=== PATIENT | male | born 1985 ===

== ENCOUNTER 2023-07-23 10:47 | Outpatient (AMB) | payer MEDICAID, SELFPAY ==
--- NOTE | 2023-07-23 10:51 | MHC.OFFVIS ---
Intake Vital Signs 07/23/23 10:55 07/23/23 11:02 Height 5 ft 1 in 5 ft 1 in Weight 175 lb 7.807 oz BMI 33.2 BP 127/82 Blood Pressure Location Lt brachial Position Sitting Pulse 85 Intake Visit Reasons: burning sensation of rectum Intake Note: Patient presents to in office visit today as a new patient for burning sensation of rectum CC: Patient reports stools with mucous and c/o burning sensation of rectum for about one year and a half. Pt states he had colonoscopy and EGD done about 4 years ago at a [facility] facility in [place]. Clinical Psychologist Required: No Accompanied by: Self / Same As Patient Allergies Penicillins Allergy (Unknown, Verified 07/23/23 10:59) Unknown HPI burning sensation of rectum HPI Details 38-year-old male here for initial evaluation of ?rectal burning. ? he is referred by Alison Tipton of [facility]. PMX Obesity Rectal wall positive for gonorrhea, history of being treated for chlamydia and syphilis Lumbar degenerative disc disease with disc herniation L5-S1 ? Herpes simplex Depression/anxiety/PTSD ? Body dysmorphic disorder Lumber DJD with herniated disc L5 Chronic low back pain * SURGICAL HISTORY COlonoscopy/EGD - 3 years ago at [facility], normal * ALLERGIES Penicillin * [facility] LABS: None in our system TODAY'S VISIT Last year he was afflicted with 3 STD's G/C and syphillis. Since then he has felt a heat in the rectum with mucus in the stools. This is concerning for him. STD testing now is negative s/p tx. He is a sexually active rendon male who engages in rectal sex. He does tap water enemas daily. We discussed possible problems/complications that tap water enemas could bring specific to microbe that could be living in tap water that could be irritating to the rectum as well as the difference and osmolality/sodium levels that do not match the body fluids. I tried recommending using distilled water and I even offered to make a recipe for him to make a salt water solution but he feels that he needs the ?force? that comes out of the faucet to feel clean during these enemas. The heat is getting better, but the mucus persists. It seems to be clear. There is no change in the consistency, timing, or color of the stools. It is not a great about of mucus, but it is there. We discussed the possibility that the localized immune system is simply over activated because of the STDs. This was the 1st time he has ever had sexually transmitted diseases. I explained that inflammation and activation of the complement system can persist for very long time in different individuals. This is 1 of the proposed mechanisms of long COVID for example and we do not understand why 1 person's immune system will be excited for a long time and others may not. It is also possible that the tap water enemas her contributing, again, cut the body is over reacting to the grindstone microbes in the water. He wants to know we would consider treating with antibiotic or an anti-inflammatory. I told him I need to do some research to see if there is any other cases of rectal STDs causing lasting problems before making a decision about reasonable treatments. He has testing that is performed every 3 months and he has been clean of any STDs over the past 3 months at least. He also had a colonoscopy and upper endoscopy that was normal fairly recently at [facility]. Rectal exam only shows a small column of possible mild hemorrhoidal tissue at about 02:00 o'clock. There is no signs of strictures bleeding or any other abnormalities. For now I am not going to do anything until I can do some research and we agree to get back together in about 6 weeks. Also committed to trying to use his tap water enemas less often to give the rectum some time to recover. [facility] Medical History (Updated 07/23/23 @ 17:05 by KARLY Armijo) Herpes simplex infection of rectum History of gonorrhea History of syphilis Surgical History History of esophagogastroduodenoscopy (EGD) H/O colonoscopy Social History Alcohol intake: never Patient Tobacco Use Status: Never used Tobacco Review of Systems Const Denies fatigue, Denies fever(s), Denies night sweats, Denies poor appetite and Denies weight loss ENT Reports Normal hearing present, Denies dental pain, Denies dysphagia, Denies hearing loss, Denies mouth pain, Denies odynophagia, Denies throat swelling, Denies tongue swelling and Reports other (Dentition adequate) Card Reports no additional complaints Resp Reports no additional complaints GI Details: rectal burning and mucus Denies abdominal pain, Denies melena, Denies bloating, Denies hematochezia, Denies constipation, Denies GI cramping, Denies dysphagia, Denies excessive flatus, Denies early satiety, Denies heartburn, Denies diarrhea, Denies nausea, Denies odynophagia, Denies vomiting and Denies hematemesis Skin/Breast Denies pruritus, Denies lesions, Denies rash and Denies jaundice Neuro Reports Normal hearing present and Denies Abnormal speech present Endo Denies fatigue Aller/Immun Denies throat swelling and Denies tongue swelling Physical Exam Vital Signs: Last Vital Signs Pulse 85 07/23/23 10:55 BP 127/82 07/23/23 10:55 BMI result Body Mass Index 33.2 Const General: cooperative, no acute distress, well developed and well groomed Nutritional Appearance: well nourished and obese centrally obese Orientation/consciousness: oriented to person, oriented to place and oriented to time Limitations: No language barrier HEENT Head: Yes normocephalic and Yes atraumatic Eyes General: appearance normal, both eyes and all related structures Pupils: Equal, round and reactive pupils present Neck Neck: Yes normal visual inspection and Yes no lymphadenopathy Thyroid: Thyroid normal Resp Effort & Inspection: normal respiratory effort and able to speak in complete sentences Auscultation: clear to auscultation bilaterally Cardio Rate: regular rate Rhythm: regular rhythm Heart sounds: Normal, physiologic split S2 sound present Peripheral pulses: radial pulses present and posterior tibial pulses present GI Inspection: No distended and No Abdominal panniculus present Palpation (GI): Soft to palpation, nontender, no guarding, not rigid and No hepatosplenomegaly present Percussion: Yes normal to percussion Auscultation: normal bowel sounds Rectal Exam - Male: Yes normal sphincter tone, No Abnormal stool present, No Fistula present (GI), No Excoriation present (GI), No tenderness and Yes other (SOME COLUMNS of swollen veins at 02:00 o'clock) Skin General skin exam: no rashes or lesions noted, turgor normal, skin not dry, no jaundice, No spider nevi and no striae Rashes: no rashes Nails: normal Neuro General: oriented to person, oriented to place and oriented to time Cranial nerves: Yes Equal, round and reactive pupils present and Yes Normal hearing present Speech: No Abnormal speech present Extrem General: Yes normal to inspection, No clubbing, No cyanosis and No edema Psych Appearance: grossly normal and well kempt Mental Status: mental status grossly normal Speech and movement: Normal speech and movement present Affect: normal affect Attitude: cooperative Thought process: Normal thought process present and not confabulating Thought content: Normal thought content present Insight: Limited insight present (Psych) Judgement: Limited judgement present (Psych) Assessment & Plan Assessment & Plan (1) Rectal burning: Code(s): R20.8 - Other disturbances of skin sensation (2) History of chlamydia: Code(s): Z86.19 - Personal history of other infectious and parasitic diseases Plan Last year he was afflicted with 3 STD's G/C and syphillis. Since then he has felt a heat in the rectum with mucus in the stools. This is concerning for him. STD testing now is negative s/p tx. He is a sexually active rendon male who engages in rectal sex. He does tap water enemas daily. We discussed possible problems/complications that tap water enemas could bring specific to microbe that could be living in tap water that could be irritating to the rectum as well as the difference and osmolality/sodium levels that do not match the body fluids. I tried recommending using distilled water and I even offered to make a recipe for him to make a salt water solution but he feels that he needs the ?force? that comes out of the faucet to feel clean during these enemas. The heat is getting better, but the mucus persists. It seems to be clear. There is no change in the consistency, timing, or color of the stools. It is not a great about of mucus, but it is there. We discussed the possibility that the localized immune system is simply over activated because of the STDs. This was the 1st time he has ever had sexually transmitted diseases. I explained that inflammation and activation of the complement system can persist for very long time in different individuals. This is 1 of the proposed mechanisms of long COVID for example and we do not understand why 1 person's immune system will be excited for a long time and others may not. It is also possible that the tap water enemas her contributing, again, cut the body is over reacting to the grindstone microbes in the water. He wants to know we would consider treating with antibiotic or an anti-inflammatory. I told him I need to do some research to see if there is any other cases of rectal STDs causing lasting problems before making a decision about reasonable treatments. He has testing that is performed every 3 months and he has been clean of any STDs over the past 3 months at least. He also had a colonoscopy and upper endoscopy that was normal fairly recently at [facility]. Rectal exam only shows a small column of possible mild hemorrhoidal tissue at about 02:00 o'clock. There is no signs of strictures bleeding or any other abnormalities. For now I am not going to do anything until I can do some research and we agree to get back together in about 6 weeks. Also committed to trying to use his tap water enemas less often to give the rectum some time to recover. Coding Level of Care Code New Pt Level 3 (77541) Diagnoses Rectal burning R20.8 History of chlamydia Z86.19
[2023-07-23 10:55] VITALS: BP 127/82; PULSE 85; BMI 33.2
== END 2023-07-23 11:46 | disposition home or self-care (01) ==
PROVIDERS: PCP Family Medicine; Visit Provider Nurse Practitioner
DX: R20.8 Other disturbances of skin sensation (principal); Z86.19 Personal history of other infectious and parasitic diseases
CPT/HCPCS: 99203

== ENCOUNTER → 2023-07-23 10:47 | Outpatient (BNVA) | payer MEDICAID, SELFPAY | PROVIDERS: PCP Family Medicine; Visit Provider Nurse Practitioner | DX: R20.8 Other disturbances of skin sensation (principal); Z86.19 Personal history of other infectious and parasitic diseases | CPT/HCPCS: 99212 ==

== ENCOUNTER 2023-09-03 11:02 | Outpatient (AMB) | payer MEDICAID, SELFPAY ==
--- NOTE | 2023-09-03 11:16 | A.OFFVIS_ITS ---
Intake Vital Signs 09/03/23 11:18 Height 5 ft 1 in Weight 177 lb 4.026 oz BMI 33.5 BP 123/79 Blood Pressure Location Rt brachial Position Sitting Pulse 82 Intake Visit Reasons: 6 week follow up Intake Note: Patient returns in follow up of burning sensation from rectum. CC: Patient continue to see mucous in stools and having a burning sensation of rectum. No new concerns today. Plug Shaper Hand Required: No Accompanied by: Self / Same As Patient Allergies Penicillins Allergy (Unknown, Verified 09/03/23 11:24) Unknown HPI 6 week follow up HPI Details Assessment & Plan (1) Rectal burning: Code(s): R20.8 - Other disturbances of skin sensation (2) History of chlamydia: Code(s): Z86.19 - Personal history of other infectious and parasitic diseases Plan Last year he was afflicted with 3 STD's G/C and syphillis. Since then he has felt a heat in the rectum with mucus in the stools. This is concerning for him. STD testing now is negative s/p tx. He is a sexually active rendon male who engages in rectal sex. He does tap water enemas daily. We discussed possible problems/complications that tap water enemas could bring specific to microbe that could be living in tap water that could be irritating to the rectum as well as the difference and osmolality/sodium levels that do not match the body fluids. I tried recommending using distilled water and I even offered to make a recipe for him to make a salt water solution but he feels that he needs the ?force? that comes out of the faucet to feel clean during these enemas. The heat is getting better, but the mucus persists. It seems to be clear. There is no change in the consistency, timing, or color of the stools. It is not a great about of mucus, but it is there. We discussed the possibility that the localized immune system is simply over activated because of the STDs. This was the 1st time he has ever had sexually transmitted diseases. I explained that inflammation and activation of the complement system can persist for very long time in different individuals. This is 1 of the proposed mechanisms of long COVID for example and we do not u nderstand why 1 person's immune system will be excited for a long time and others may not. It is also possible that the tap water enemas her contributing, again, cut the body is over reacting to the [place] microbes in the water. He wants to know we would consider treating with antibiotic or an anti- inflammatory. I told him I need to do some research to see if there is any other cases of rectal STDs causing lasting problems before making a decision about reasonable treatments. He has testing that is performed every 3 months and he has been clean of any STDs over the past 3 months at least. He also had a colonoscopy and upper endoscopy that was normal fairly recently at [facility]. Rectal exam only shows a small column of possible mild hemorrhoidal tissue at about 02:00 o'clock. There is no signs of strictures bleeding or any other abnormalities. For now I am not going to do anything until I can do some research and we agree to get back together in about 6 weeks. Also committed to trying to use his tap water enemas less often to give the rectum some time to recover. TODAY'S VISIT The rectal burning and mucus is the same despite less rectal irrigation/enema. So, we will try zinc oxide cream to soothe and a course of doxy and flagyl to cover for anti inflammatory/opportunistic infection and possible trichomoniasis. ROV 3 weeks. [facility] Medical History Herpes simplex infection of rectum History of gonorrhea History of syphilis Surgical History History of esophagogastroduodenoscopy (EGD) H/O colonoscopy Social History Alcohol intake: never Patient Tobacco Use Status: Never used Tobacco Review of Systems Const Denies fatigue, Denies fever(s), Denies night sweats, Denies poor appetite and Denies weight loss ENT Reports Normal hearing present, Denies dental pain, Denies dysphagia, Denies hearing loss, Denies mouth pain, Denies odynophagia, Denies throat swelling, Denies tongue swelling and Reports other (Dentition adequate) Card Reports no additional complaints Resp Reports no additional complaints GI Details: Denies abdominal pain, Denies melena, Denies bloating, Denies hematochezia, Denies constipation, Denies GI cramping, Denies dysphagia, Denies excessive flatus, Denies early satiety, Denies heartburn, Denies diarrhea, Denies nausea, Denies odynophagia, Denies vomiting, Denies hematemesis and Reports other (Rectal burning) Skin/Breast Denies pruritus, Denies lesions, Denies rash and Denies jaundice Neuro Reports Normal hearing present and Denies Abnormal speech present Endo Denies fatigue Aller/Immun Denies throat swelling and Denies tongue swelling Physical Exam Vital Signs: Last Vital Signs Pulse 82 09/03/23 11:18 BP 123/79 09/03/23 11:18 BMI result Body Mass Index 33.5 Const General: cooperative, no acute distress, well developed and well groomed Nutritional Appearance: well nourished and obese Orientation/consciousness: oriented to person, oriented to place and oriented to time Limitations: No language barrier HEENT Head: Yes normocephalic and Yes atraumatic Eyes General: appearance normal, both eyes and all related structures Pupils: Equal, round and reactive pupils present Neck Neck: Yes normal visual inspection and Yes no lymphadenopathy Thyroid: Thyroid normal Resp Effort & Inspection: normal respiratory effort and able to speak in complete sentences Auscultation: clear to auscultation bilaterally Cardio Rate: regular rate Rhythm: regular rhythm Heart sounds: Normal, physiologic split S2 sound present Peripheral pulses: radial pulses present and posterior tibial pulses present GI Inspection: No distended, No Abdominal panniculus present and Yes obesity Palpation (GI): Soft to palpation, nontender, no guarding, not rigid and No hepatosplenomegaly present Percussion: Yes normal to percussion Auscultation: normal bowel sounds Rectal Exam - Male: Yes deferred Skin General skin exam: no rashes or lesions noted, turgor normal, skin not dry, no jaundice, No spider nevi and no striae Rashes: no rashes Nails: normal Neuro General: oriented to person, oriented to place and oriented to time Cranial nerves: Yes Equal, round and reactive pupils present and Yes Normal hearing present Speech: No Abnormal speech present Extrem General: Yes normal to inspection, No clubbing, No cyanosis and No edema Psych Appearance: grossly normal and well kempt Mental Status: mental status grossly normal Speech and movement: Normal speech and movement present Affect: normal affect Attitude: cooperative Thought process: Normal thought process present and not confabulating Thought content: Normal thought content present Insight: Limited insight present (Psych) Judgement: Limited judgement present (Psych) Assessment & Plan Assessment & Plan (1) Rectal burning: Code(s): R20.8 - Other disturbances of skin sensation (2) Rectal abscess: Code(s): K61.1 - Rectal abscess Plan The rectal burning and mucus is the same despite less rectal irrigation/enema. So, we will try zinc oxide cream to soothe and a course of doxy and flagyl to cover for anti inflammatory/opportunistic infection and possible trichomoniasis. ROV 3 weeks. Medications: New metronidazole 500 mg PO TID 10 days 30 tabs 0RF doxycycline hyclate 100 mg PO BID 14 days 28 caps 0RF K61.1 - Rectal abscess Coding Level of Care Code Est Pt Level 3 (12317) Diagnoses Rectal burning R20.8 Rectal abscess K61.1
[2023-09-03 11:18] VITALS: BP 123/79; PULSE 82; BMI 33.5
== END 2023-09-03 11:47 | disposition home or self-care (01) ==
PROVIDERS: PCP Family Medicine; Visit Provider Nurse Practitioner
DX: R20.8 Other disturbances of skin sensation (principal); K61.1 Rectal abscess
CPT/HCPCS: 99213

== ENCOUNTER → 2023-09-03 11:02 | Outpatient (BNVA) | payer MEDICAID, SELFPAY | PROVIDERS: PCP Family Medicine; Visit Provider Nurse Practitioner | DX: R20.8 Other disturbances of skin sensation (principal); K61.1 Rectal abscess | CPT/HCPCS: 99212 ==

== ENCOUNTER 2024-01-06 14:48 | Outpatient (REF) | payer MEDICAID, SELFPAY ==
[2024-01-06 15:52] LABS: MANUAL DIFF FLAG NO
[2024-01-06 16:08] LABS: Basophils Percent Auto 0.6 % (0-2); Eosinophils Absolute Auto 0.2 X10*3/uL (0.0-0.4); Eosinophils Percent Auto 2.4 % (0-4); Hematocrit 49.2 % (42.0-52.0); Hemoglobin 15.9 g/dl (14.0-18.0); Imm Gran Abs Auto 0.05 X10*3/uL (0.00-0.03); Imm Gran Pct Auto 0.8 % (0.0-0.4); Lymphocytes Absolute Auto 2.6 X10*3/uL (1.2-4.9); Lymphocytes Percent Auto 40.1 % (20-40); Mean Corpuscular HGB Conc 32.3 g/dl (31.0-36.0); Mean Corpuscular Hemoglobin 25.7 pg (27.0-33.0); Mean Corpuscular Volume 79.5 fL (80.0-98.0); Monocytes Absolute Auto 0.7 X10*3/uL (0.1-1.2); Monocytes Percent Auto 10.4 % (2-11); Neutrophils Percent Auto 45.7 % (45-73); Platelet Count 304 X10*3/uL (160-400); Red Blood Count 6.19 X10*6/uL (4.60-5.80); Red Cell Distribution Width 16.1 % (11.0-16.0); White Blood Count 6.5 X10*3/uL (4.8-10.8)
[2024-01-06 16:32] LABS: Alanine Aminotransferase 37 U/L (0-40); Albumin Level 4.8 g/dL (3.5-5.0); Alkaline Phosphatase 65 U/L (39-117); Anion Gap 15 (12-20); Aspartate Amino Transferase 24 U/L (5-37); Bilirubin Total 0.5 mg/dL (0.0-1.0); Blood Urea Nitrogen 8 mg/dL (9-16); Calcium 9.9 mg/dL (8.4-10.2); Carbon Dioxide 27 mmol/L (22-29); Chloride 103 mmol/L (96-108); Cholesterol 248 mg/dL (<200); Estimated Glomerular Filt Rate > 60; Glucose Random 93 mg/dL (60-115); HDL Cholesterol 41 mg/dL (>40); LDL Cholesterol Calculated 153 mg/dL (<100); Potassium 4.2 mmol/L (3.3-5.1); Sodium 141 mmol/L (135-145); Total Protein 8.3 g/dL (6.5-8.0); Triglycerides 272 mg/dL (<150)
== END 2024-01-06 14:49 | disposition home or self-care (01) ==
LOC: HO.HHCL 14:48
PROVIDERS: Visit Provider Nurse Practitioner Family
DX: E78.5 Hyperlipidemia, unspecified (principal)
CPT/HCPCS: 36415; 80053; 80061; 85025

== ENCOUNTER 2024-02-16 10:30 | Outpatient (AMB) | payer MEDICAID, SELFPAY ==
--- NOTE | 2024-02-16 10:34 | A.OFFVIS_ITS ---
Vital Signs 02/16/24 11:07 Height 5 ft 1 in Weight 180 lb 5.41 oz BMI 34.1 BP 124/88 Blood Pressure Location Lt brachial Position Sitting Pulse 80 Intake Visit Reasons: Rectal bleeding Intake Note: Qiana presents to in office follow up of rectal heat and stool mucous . CC: Patient reports that he was not able to handled the abx too well and finished them but did not take them as directed. Patient reports that the medications would cause N/V but it did improved symptoms. Patient continues having mucous on stools and feeling rectal heat . Patient also reports that getting the flu vaccine yesterday and having a sore throat today. Regroover Required: No Accompanied by: Self / Same As Patient Allergies Penicillins Allergy (Unknown, Verified 02/16/24 11:12) Unknown HPI HPI Rectal bleeding: Details: Assessment & Plan (1) Rectal burning: Code(s): R20.8 - Other disturbances of skin sensation (2) Rectal abscess: Code(s): K61.1 - Rectal abscess Plan The rectal burning and mucus is the same despite less rectal irrigation/enema. So, we will try zinc oxide cream to soothe and a course of doxy and flagyl to cover for anti inflammatory/opportunistic infection and possible trichomoniasis. ROV 3 weeks. Medications: New metronidazole 500 mg PO TID 10 days 30 tabs 0RF doxycycline hyclate 100 mg PO BID 14 days 28 caps 0RF K61.1 - Rectal abscess TODAY'S VISIT THE PATIENT HAS BEEN LOST TO FOLLOW-UP since 08/2023 and at that time I had expected a three-week follow-up. He had significant relief with the abx, about 90%! However, he had trouble taking them consistently r/t nausea - and then he discovered that it was better tolerated if he ate a heavier meal with the medications. He is quite happy with the result given how long he struggled! We will repeat therapy with better compliance and see if the condition remains at bay. ROV 8 weeks [facility] Medical History Herpes simplex infection of rectum History of gonorrhea History of syphilis Surgical History History of esophagogastroduodenoscopy (EGD) H/O colonoscopy Social History Alcohol intake: never Patient Tobacco Use Status: Never used Tobacco Review of Systems Const Denies fatigue, Denies fever(s), Denies night sweats, Denies poor appetite and Denies weight loss ENT Reports Normal hearing present, Denies dental pain, Denies dysphagia, Denies hearing loss, Denies mouth pain, Denies odynophagia, Denies throat swelling, Denies tongue swelling and Reports other (Dentition adequate) Card Reports no additional complaints Resp Reports no additional complaints GI Details: rectal pain Denies abdominal pain, Denies melena, Denies bloating, Denies hematochezia, Denies constipation, Denies GI cramping, Denies dysphagia, Denies excessive flatus, Denies early satiety, Denies heartburn, Denies diarrhea, Denies nausea, Denies odynophagia, Denies vomiting and Denies hematemesis Skin/Breast Denies pruritus, Denies lesions, Denies rash and Denies jaundice Neuro Reports Normal hearing present and Denies Abnormal speech present Endo Denies fatigue Aller/Immun Denies throat swelling and Denies tongue swelling Physical Exam Vital Signs: Last Vital Signs Pulse 80 02/16/24 11:07 BP 124/88 02/16/24 11:07 BMI result Body Mass Index 34.1 Const General: cooperative, no acute distress, well developed and well groomed Nutritional Appearance: well nourished and obese Orientation/consciousness: oriented to person, oriented to place and oriented to time Limitations: No language barrier HEENT Head: Yes normocephalic and Yes atraumatic Eyes General: appearance normal, both eyes and all related structures Pupils: Equal, round and reactive pupils present Neck Neck: Yes normal visual inspection and Yes no lymphadenopathy Thyroid: Thyroid normal Resp Effort & Inspection: normal respiratory effort and able to speak in complete sentences Auscultation: clear to auscultation bilaterally Cardio Rate: regular rate Rhythm: regular rhythm Heart sounds: Normal, physiologic split S2 sound present Peripheral pulses: radial pulses present and posterior tibial pulses present GI Inspection: No distended, No Abdominal panniculus present and Yes obesity Palpation (GI): Soft to palpation, nontender, no guarding, not rigid and No hepatosplenomegaly present Percussion: Yes normal to percussion Auscultation: normal bowel sounds Rectal Exam - Male: Yes deferred Skin General skin exam: no rashes or lesions noted, turgor normal, skin not dry, no jaundice, No spider nevi and no striae Rashes: no rashes Nails: normal Neuro General: oriented to person, oriented to place and oriented to time Cranial nerves: Yes Equal, round and reactive pupils present and Yes Normal hearing present Speech: No Abnormal speech present Extrem General: Yes normal to inspection, No clubbing, No cyanosis and No edema Psych Appearance: grossly normal and well kempt Mental Status: mental status grossly normal Speech and movement: Normal speech and movement present Affect: normal affect Attitude: cooperative Thought process: Normal thought process present and not confabulating Thought content: Normal thought content present Insight: Limited insight present (Psych) Judgement: Limited judgement present (Psych) Assessment & Plan Assessment & Plan (1) Rectal abscess: Code(s): K61.1 - Rectal abscess Category: Medical Plan THE PATIENT HAS BEEN LOST TO FOLLOW-UP since 08/2023 and at that time I had expected a three-week follow-up. He had significant relief with the abx, about 90%! However, he had trouble taking them consistently r/t nausea - and then he discovered that it was better tolerated if he ate a heavier meal with the medications. He is quite happy with the result given how long he struggled! We will repeat therapy with better compliance and see if the condition remains at bay. ROV 8 weeks Medications: New doxycycline hyclate 100 mg PO BID 28 tabs 0RF 14 days metronidazole 500 mg PO TID 42 tabs 0RF 14 days K61.1 - Rectal abscess Coding Level of Care Code Est Pt Level 3 (07983) Diagnoses Rectal abscess K61.1
[2024-02-16 11:07] VITALS: BP 124/88; PULSE 80; BMI 34.1
== END 2024-02-16 11:56 | disposition home or self-care (01) ==
PROVIDERS: PCP Family Medicine; Visit Provider Nurse Practitioner
DX: K61.1 Rectal abscess (principal)
CPT/HCPCS: 99213

== ENCOUNTER → 2024-02-16 10:30 | Outpatient (BNVA) | payer MEDICAID, SELFPAY | PROVIDERS: PCP Family Medicine; Visit Provider Nurse Practitioner | DX: K61.1 Rectal abscess (principal) | CPT/HCPCS: 99212 ==

== ENCOUNTER → 2024-04-14 12:45 | Outpatient (BNVA) | payer MEDICAID, SELFPAY | PROVIDERS: PCP Family Medicine; Visit Provider Nurse Practitioner ==

== ENCOUNTER 2024-11-23 16:00 | Outpatient (AMB) | payer MEDICAID, SELFPAY ==
--- NOTE | 2024-11-23 16:04 | A.OFFVIS_ITS ---
Vital Signs 11/23/24 16:09 Height 5 ft 1 in BP 128/72 Blood Pressure Location Lt brachial Position Sitting Pulse 91 Pulse Oximetry (%) 96 Oxygen Delivery Method Room Air Intake Visit Reasons: follow up rectal abscess PT R/S from 09/23/24 Intake Note: Patient follow up for?rectal abscess. Patient denies any GI issues. Superintendent Renting Managing Required: No Accompanied by: Self / Same As Patient Allergies Penicillins Allergy (Unknown, Verified 11/23/24 16:03) Unknown HPI HPI follow up rectal abscess PT R/S from 09/23/24: Details: Assessment & Plan (1) Rectal abscess: Code(s): K61.1 - Rectal abscess Category: Medical Plan THE PATIENT HAS BEEN LOST TO FOLLOW-UP since 08/2023 and at that time I had expected a three-week follow-up. He had significant relief with the abx, about 90%! However, he had trouble taking them consistently r/t nausea - and then he discovered that it was better tolerated if he ate a heavier meal with the medications. He is quite happy with the result given how long he struggled! We will repeat therapy with better compliance and see if the condition remains at bay. ROV 8 weeks Medications: New doxycycline hyclate 100 mg PO BID 28 tabs 0RF 14 days metronidazole 500 mg PO TID 42 tabs 0RF 14 days K61.1 - Rectal abscess TODAY'S VISIT Did not tolerated the flagyl well r/t vomiting and he denies ETOH at the time. He asks if there is any severe pathology r/t his persistent mucus with BM's - there is not. 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 With this his burning rectally has diminished significantly since we treated, but he still has residual sx. He asks if there is anything else we can do. I will give a trial of mesalamine supps for inflammation. ROV 3 mos. [facility] Medical History Herpes simplex infection of rectum History of gonorrhea History of syphilis Surgical History History of esophagogastroduodenoscopy (EGD) H/O colonoscopy Social History Alcohol intake: never Patient Tobacco Use Status: Never used Tobacco Review of Systems Const Denies fatigue, Denies fever(s), Denies night sweats, Denies poor appetite and Denies weight loss ENT Reports Normal hearing present, Denies dental pain, Denies dysphagia, Denies hearing loss, Denies mouth pain, Denies odynophagia, Denies throat swelling, Denies tongue swelling and Reports other (Dentition adequate) Card Reports no additional complaints Resp Reports no additional complaints GI Details: Rectal burning, mucus with stools Denies abdominal pain, Denies melena, Denies bloating, Denies hematochezia, Denies constipation, Denies GI cramping, Denies dysphagia, Denies excessive flatus, Denies early satiety, Denies heartburn, Denies diarrhea, Denies nausea, Denies odynophagia, Denies vomiting and Denies hematemesis Skin/Breast Denies pruritus, Denies lesions, Denies rash and Denies jaundice Neuro Reports Normal hearing present and Denies Abnormal speech present Endo Denies fatigue Aller/Immun Denies throat swelling and Denies tongue swelling Physical Exam Vital Signs: Last Vital Signs Pulse 91 11/23/24 16:09 BP 128/72 11/23/24 16:09 Pulse Ox 96 11/23/24 16:09 Oxygen Delivery Method Room Air 11/23/24 16:09 Const General: cooperative, no acute distress, well developed and well groomed Nutritional Appearance: average body habitus and well nourished Orientation/consciousness: oriented to person, oriented to place and oriented to time Limitations: No language barrier HEENT Head: Yes normocephalic and Yes atraumatic Eyes General: appearance normal, both eyes and all related structures Pupils: Equal, round and reactive pupils present Neck Neck: Yes normal visual inspection and Yes no lymphadenopathy Thyroid: Thyroid normal Resp Effort & Inspection: normal respiratory effort and able to speak in complete sentences Auscultation: clear to auscultation bilaterally Cardio Rate: regular rate Rhythm: regular rhythm Heart sounds: Normal, physiologic split S2 sound present Peripheral pulses: radial pulses present and posterior tibial pulses present GI Inspection: No distended and No Abdominal panniculus present Palpation (GI): Soft to palpation, nontender, no guarding, not rigid and No hepatosplenomegaly present Percussion: Yes normal to percussion Auscultation: normal bowel sounds Rectal Exam - Male: Yes deferred Skin General skin exam: no rashes or lesions noted, turgor normal, skin not dry, no jaundice, No spider nevi and no striae Rashes: no rashes Nails: normal Neuro General: oriented to person, oriented to place and oriented to time Cranial nerves: Yes Equal, round and reactive pupils present and Yes Normal hearing present Speech: No Abnormal speech present Extrem General: Yes normal to inspection, No clubbing, No cyanosis and No edema Psych Appearance: grossly normal and well kempt Mental Status: mental status grossly normal Speech and movement: Normal speech and movement present Affect: normal affect Attitude: cooperative Thought process: Normal thought process present and not confabulating Thought content: Normal thought content present Insight: Fair insight present (Psych) and Limited insight present (Psych) Judgement: Fair judgement present (Psych) and Limited judgement present (Psych) Assessment & Plan Assessment & Plan (1) Rectal abscess: Code(s): K61.1 - Rectal abscess Category: Medical (2) Rectal burning: Code(s): R20.8 - Other disturbances of skin sensation Category: Medical (3) Rectal inflammation: Code(s): K62.89 - Other specified diseases of anus and rectum Category: Medical Plan Did not tolerated the flagyl well r/t vomiting and he denies ETOH at the time. He asks if there is any severe pathology r/t his persistent mucus with BM's - there is not. 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 With this his burning rectally has diminished significantly since we treated, but he still has residual sx. He asks if there is anything else we can do. I will give a trial of mesalamine supps for inflammation. ROV 3 mos. Medications: New mesalamine 1 g [place] BEDTIME 30 ea 0RF K62.89 - Other specified diseases of anus and rectum Coding Level of Care Code Est Pt Level 3 (61923) Diagnoses Rectal abscess K61.1 Rectal burning R20.8 Rectal inflammation K62.89
[2024-11-23 16:09] VITALS: BP 128/72; PULSE 91; O2SAT 96
--- OUTSIDE RECORDS SUMMARY | 2024-11-23 16:15 | XMS_ITS | Encounter Summary ---
Author Organization [employer] Address [address] [place] [address] Care Team Providers Care Shipfitter Name Role Phone Ilana Owens NP Primary Care Provider [phone] Reason for Visit * Reason Onset Date Comments Appointment Request 11/08/2024 Encounter Details Date Type Department Care Team ([facility] st Contact Info) Description 11/08/2024 Telephone [facility] [address] [place], [place] [phone] Ilana Owens NP [address] [place], [place] [phone] Appointment Request Social History Tobacco Use Types Packs/Day Years Used Date Smoking Tobacco: Never Smokeless Tobacco: Never Alcohol Use Standard Drinks/Week Comments Never 0 (1 standard drink = 0.6 oz pur e alcohol) Depression Answer Date Recorded Patient Health Questionnaire-9 Score 6 01/06/2024 Patient Health Questionnaire-9 Score 6 01/06/2024 Last PHQ-9: Questionnaire Data Not on file 0 01/06/2024 Housing Stability Answer Date Recorded What is your housing situation today? I do not have housing (Staying with others, in a hotel, in a jail, living outside on the street, on a beach, in a car, or in a park 01/06/[address] you li ve. Do you have problems with any of the following? None of the above 01/06/2024 Food Insecurity Answer Date Recorded Within the past 12 months, y ou worried that your food would run out before you got money to buy more: Often true 01/06/2024 Within the past 12 months,th e food you bought just didn't last and you didn't have enough money to get more: Often true 03/2024 Transportation Answer Date Recorded In the past 12 months, has l ack of transportation kept you from medical appts, meetings, work or from getting things needed for daily living? No 04/16/2023 Utilities Answer Date Recorded In the past 12 months, has t he electric, gas, oil or water company threatened to shut off services in your home? No 04/16/2023 Depression Answer Date Recorded Patient Health Questionnaire-2 Score 0 01/06/2024 Internet Access Answer Date Recorded Internet Access Q1 Yes 02/29/2024 Internet Access Q2 I do not want or need it 07/2023 Sex and Gender Information Value Date Recorded Sex Assigned at Male 04/28/2022 10:20 AM EDT Legal Sex Male 10:20 AM EDT Gender Identity Male 04/28/2022 10:20 AM EDT Sexual Orientation Choose not to disclose 2021 10:20 AM EDT documented as of this encounter Miscellaneous Notes * Telephone Encounter - Ewa Wade - 11/08/2024 8:15 AM EDT Tc from pt returning phone call for a TP appointment. documented in this encounter Plan of Treatment Upcoming Encounters Date Type Department Care Team (Late st Contact Info) Description 02/20/2025 2:00 PM EDT Office Visit [facility] [address] [place] [address] Ilana Owens NP [address] [place] [address] documented as of this encounter Visit Diagnoses Not on filedocumented in this encounter Additional Health Concerns Assessment Noted Time PHQ-9 Depression Total Score: 6 01/06/20 3:01 PM EDT documented as of this encounter Care Teams Shipfitter Relationship Specialty Start Date End Date Ilana Owens NP [address] [place] [address] PCP - General Family Medicine 02/12/24 documented as of this encounter
== END 2024-11-23 16:37 | disposition home or self-care (01) ==
LOC: HO.HGI 16:01
PROVIDERS: PCP Family Medicine; Visit Provider Nurse Practitioner
DX: K61.1 Rectal abscess (principal); R20.8 Other disturbances of skin sensation; K62.89 Other specified diseases of anus and rectum
CPT/HCPCS: 99213

== ENCOUNTER → 2024-11-23 16:00 | Outpatient (BNVA) | payer MEDICAID, SELFPAY | PROVIDERS: PCP Family Medicine; Visit Provider Nurse Practitioner | DX: K61.1 Rectal abscess (principal); K62.89 Other specified diseases of anus and rectum; R20.8 Other disturbances of skin sensation | CPT/HCPCS: 99212 ==

== ENCOUNTER 2025-02-21 13:08 | Outpatient (REF) | payer MEDICAID, SELFPAY ==
[2025-02-21 16:15] LABS: MANUAL DIFF FLAG NO
[2025-02-21 16:24] LABS: Hematocrit 46.4 % (42.0-52.0); Hemoglobin 14.9 g/dl (14.0-18.0); Imm Gran Abs Auto 0.06 X10*3/uL (0.00-0.03); Imm Gran Pct Auto 0.9 % (0.0-0.4); Lymphocytes Absolute Auto 2.4 X10*3/uL (1.2-4.9); Mean Corpuscular HGB Conc 32.1 g/dl (31.0-36.0); Mean Corpuscular Hemoglobin 25.2 pg (27.0-33.0); Mean Corpuscular Volume 78.5 fL (80.0-98.0); NRBC Abs Auto 0.000 X10*3/uL (0.0-0.012); NRBC Pct Auto 0.0 /100WBC (0.0-0.2); Platelet Count 280 X10*3/uL (160-400); Red Blood Count 5.91 X10*6/uL (4.60-5.80); White Blood Count 6.5 X10*3/uL (4.8-10.8)
[2025-02-21 16:34] LABS: Hemoglobin A1C 163.6966 umol/L; Total Hemoglobin (HGBA1C) 3959.4650 umol/L
[2025-02-21 16:40] LABS: Alanine Aminotransferase 52 U/L (0-40); Albumin Level 4.8 g/dL (3.5-5.0); Alkaline Phosphatase 74 U/L (39-117); Anion Gap 14 (12-20); Aspartate Amino Transferase 32 U/L (5-37); Blood Urea Nitrogen 9 mg/dL (9-16); Calcium 9.5 mg/dL (8.4-10.2); Carbon Dioxide 26 mmol/L (22-29); Chloride 105 mmol/L (96-108); Cholesterol 219 mg/dL (<200); Estimated Glomerular Filt Rate > 60; HDL Cholesterol 34 mg/dL (>40); Potassium 4.1 mmol/L (3.3-5.1); Sodium 141 mmol/L (135-145); Total Protein 7.8 g/dL (6.5-8.0); Triglycerides 269 mg/dL (<150)
== END 2025-02-21 13:09 | disposition home or self-care (01) ==
LOC: HO.HHCL 13:08
PROVIDERS: PCP Family Medicine; Referring Provider Nurse Practitioner Family; Visit Provider Nurse Practitioner
DX: K62.89 Other specified diseases of anus and rectum (principal); R20.8 Other disturbances of skin sensation; Z00.00 Encounter for general adult medical examination without abnormal findings; Z20.2 Contact with and (suspected) exposure to infections with a predominantly sexual mode of transmission
CPT/HCPCS: 36415; 80053; 80061; 83036; 85025; 99212

== ENCOUNTER 2025-02-21 13:08 | Outpatient (AMB) | payer MEDICAID, SELFPAY ==
--- OUTSIDE RECORDS SUMMARY | 2025-02-20 14:00 | XMS_ITS | Encounter Summary ---
Author Organization [employer] Address [address] [place] [address] Care Team Providers Care Resource Analyst Name Role Phone Ilana Owens NP Primary Care Provider [phone] Encounter Details Date Type Department Care Team (Late st Contact Info) Description 02/20/2025 2:00 PM EDT Office Visit [facility] [address] [place], [place] [phone] Ilana Owens NP [address] [place], [place] [phone] Preventative health care (Primary Dx); Possible exposure to STI; Obesity (BMI 30-39.9); Dietary counseling; Exercise counseling Social History Tobacco Use Types Packs/Day Years Used Date Smoking Tobacco: Never Passive Smoke Exposure: Never Smokeless Tobacco: Never Tobacco Cessation:Counseling Given: Not Answered Alcohol Use Standard Drinks/Week Comments Never 0 (1 standard drink = 0.6 oz pur e alcohol) Depression Answer Date Recorded Patient Health Questionnaire-9 Score 0 02/20/2025 Patient Health Questionnaire-9 Score 0 02/20/2025 Last PHQ-9: Questionnaire Data Not on file 0 02/20/2025 Housing Stability Answer Date Recorded What is your housing situation today? I have blaise delgado 02/20/[address] you li ve. Do you have problems with any of the following? None of the above 02/20/2025 Food Insecurity Answer Date Recorded Within the past 12 months, y ou worried that your food would run out before you got money to buy more: Never True 02/20/2025 Within the past 12 months,th e food you bought just didn't last and you didn't have enough money to get more: Never True Transportation Answer Date Recorded In the past 12 months, has l ack of transportation kept you from medical appts, meetings, work or from getting things needed for daily living? No 02/20/2025 Utilities Answer Date Recorded In the past 12 months, has t he electric, gas, oil or water company threatened to shut off services in your home? No 02/20/2025 Depression Answer Date Recorded Patient Health Questionnaire-2 Score 0 02/20/2025 Internet Access Answer Date Recorded Internet Access Q1 Yes 02/20/2025 Internet Access Q2 Not on file 02/20/2025 Sex and Gender Information Value Date Recorded Sex Assigned at Male 04/28/2022 10:20 AM EDT Legal Sex Male 10:20 AM EDT Gender Identity Male 04/28/2022 10:20 AM EDT Sexual Orientation Wayne 02/19/2025 5: 36 PM EDT documented as of this encounter Last Filed Vital Signs Vital Sign Reading Time Taken Comments Blood Pressure 124/82 02/20/2025 2:02 PM EDT Pulse 88 02/20/2025 2:02 PM EDT Temperature 37 C (98.6 F) 02/20/2025 2:02 PM EDT Respiratory Rate 21 02/20/2025 2:02 PM EDT Oxygen Saturation - - Inhaled Oxygen Concentration - - Weight 85.7 kg (189 lb) 02/20/2025 2:02 PM EDT Height 157 cm (5' 1.81 ) 02/20/2025 2:02 PM EDT Body Mass Index 34.78 02/20/2025 2:02 PM EDT documented in this encounter Functional Status * Over the past 2 weeks, how often have you been bothered by any of the following problems? Question Answer Date of Assessment Author Patient Health Questionnaire-2 Score 0 01/28 2:09 PM EDT Tolu Sanchez MA * Little interest or pleasure in doing things Answer Date of Assessment Author Not at all 02/20/2025 2:09 PM EDT Emerald Sanchez MA * Feeling down, depressed, or hopeless Answer Date of Assessment Author Not at all 02/20/2025 2:09 PM EDT Emerald Sanchez MA * Trouble falling or staying asleep, or sleeping too much Answer Date of Assessment Author Not at all 02/20/2025 2:09 PM EDT Emerald Sanchez MA * Feeling tired or having little energy Answer Date of Assessment Author Not at all 02/20/2025 2:09 PM EDT Emerald Sanchez MA * Poor appetite or overeating Answer Date of Assessment Author Not at all 02/20/2025 2:09 PM EDT Emerald Sanchez MA * Feeling bad about yourself - or that you are a failure or have let yourself or your family down Answer Date of Assessment Author Not at all 02/20/2025 2:09 PM EDT Emerald Sanchez MA * Trouble concentrating on things, such as reading the newspaper or watching television Answer Date of Assessment Author Not at all 02/20/2025 2:09 PM EDT Emerald Sanchez MA * Moving or speaking so slowly that other people could have noticed? Or the opposite - being so fidgety or restless that you have been moving around a lot more than usual. Answer Date of Assessment Author Not at all 02/20/2025 2:09 PM EDT Emerald Sanchez MA * Thoughts that you would be better off or hurting yourself in some way Answer Date of Assessment Author Not at all 02/20/2025 2:09 PM EDT Emerald Sanchez MA * Patient Health Questionnaire-9 Score Answer Date of Assessment Author 0 02/20/2025 2:09 PM EDT Emerald Sanchez MA * Over the last 2 weeks, how often have you been bothered by any of the following problems? Question Answer Date of Assessment Author Feeling nervous, anxious, or on edge 0 01/28 2:09 PM EDT Tolu Sanchez MA Not being able to stop or co ntrol worrying 0 02/20/2025 2:09 PM EDT Tolu Sanchez MA Worrying too much about diff erent things 0 02/20/2025 2:09 PM EDT Tolu Sanchez MA Trouble relaxing 0 02/20/2025 2:09 PM EDT Tolu Mcadams MA Being so restless that it is hard to sit still 0 02/20/2025 2:09 PM EDT Tolu Sanchez MA Becoming easily annoyed or irritable 0 01/28 2:09 PM EDT Tolu Sanchez MA Feeling afraid as if somethi ng awful might happen 0 02/20/2025 2:09 PM EDT Tolu Sanchez MA KATY-7 Total Score 0 02/20/2025 2:09 PM EDT Tolu Sanchez MA documented as of this encounter Miscellaneous Notes * Assessment & Plan Note - Ilana Owens NP - 02/20/2025 2:46 PM EDTAssociated Problem(s): Dietary counseling Dietary Recommendations: Fruits, vegetables, whole grains, protein foods, and fat-free or low-fat dairy products are healthychoices. Eat different types of protein foods in your diet. This can include seafood, lean meats, poultry, beans, peas, lentils, nuts, seeds, soy products, and eggs. Limit foods and beverages higher in added sugars, saturated fat, and sodium. Exercise Recommendations: At least 150 minutes of moderate-intensity physical activity per week, or an equivalent combinationof moderate- and vigorous-intensity activity documented in this encounter Plan of Treatment Scheduled Orders Name Type Priority Associated Diagnoses Orde r Schedule Comprehensive Metabolic Panel Lab Routine Preventative health care Expected: 02/20/2025 (Approximate), Expires: 02/20/2026 Hemoglobin A1c Lab Routine Preventative health care Expected: 02/20/2025 (Approximate), Expires: 02/20/2026 Lipid Panel, Standard Lab Routine Preventative health care Expected: 02/20/2025 (Approximate), Expires: 02/20/2026 CBC auto differential Lab Routine Preventative health care Possible exposure to STI Expected: 02/20/2025 (Approximate), Expires: 02/20/2026 documented as of this encounter Visit Diagnoses Diagnosis Preventative health care- Primary Routine general medical examination at a health care facility Possible exposure to STI Obesity (BMI 30-39.9) Dietary counseling Dietary surveillance and counseling Exercise counseling documented in this encounter Additional Health Concerns Assessment Noted Time PHQ-9 Depression Total Score: 0 02/21/20 25 2:09 PM EDT documented as of this encounter Care Teams Resource Analyst Relationship Specialty Start Date End Date Ilana Owens NP [address] [place] [id number] PCP - General Family Medicine 02/12/24 documented as of this encounter
--- NOTE | 2025-02-21 13:22 | A.OFFVIS_ITS ---
Vital Signs 02/21/25 13:33 Height 5 ft 2 in Weight 182 lb 15.739 oz BMI 33.5 BP 131/96 H Blood Pressure Location Lt brachial Position Sitting Pulse 85 Intake Visit Reasons: 3 mo Rectal inflammation Intake Note: Qiana presents in the office as a 3 month follow up for rectal inflammation. CC: States that they are not having any concerns at this time! Medical Staff Physician Required: No Allergies Penicillins Allergy (Unknown, Verified 02/21/25 13:33) Unknown HPI HPI 3 mo Rectal inflammation: Details: Assessment & Plan (1) Rectal abscess: Code(s): K61.1 - Rectal abscess Category: Medical (2) Rectal burning: Code(s): R20.8 - Other disturbances of skin sensation Category: Medical (3) Rectal inflammation: Code(s): K62.89 - Other specified diseases of anus and rectum Category: Medical Plan Did not tolerated the flagyl well r/t vomiting and he denies ETOH at the time. He asks if there is any severe pathology r/t his persistent mucus with BM's - there is not. 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 With this his burning rectally has diminished significantly since we treated, but he still has residual sx. He asks if there is anything else we can do. I will give a trial of mesalamine supps for inflammation. ROV 3 mos. Medications: New mesalamine 1 g [place] BEDTIME 30 ea 0RF K62.89 - Other specified diseases of anus and TODAYS VISIT [facility] Medical History Herpes simplex infection of rectum History of gonorrhea History of syphilis Surgical History History of esophagogastroduodenoscopy (EGD) H/O colonoscopy Family History (Updated 02/21/25 @ 13:33 by NILAM Thornton) Maternal Aunt Cancer Other Colon cancer Social History Alcohol intake: never Patient Tobacco Use Status: Never used Tobacco Review of Systems Const Denies fatigue, Denies fever(s), Denies night sweats, Denies poor appetite and Denies weight loss ENT Reports Normal hearing present, Denies dental pain, Denies dysphagia, Denies hearing loss, Denies mouth pain, Denies odynophagia, Denies throat swelling, Denies tongue swelling and Reports other (Dentition adequate) Card Reports no additional complaints Resp Reports no additional complaints GI Details: Rectal burning Denies abdominal pain, Denies melena, Denies bloating, Denies hematochezia, Denies constipation, Denies GI cramping, Denies dysphagia, Denies excessive flatus, Denies early satiety, Denies heartburn, Denies diarrhea, Denies nausea, Denies odynophagia, Denies vomiting and Denies hematemesis Skin/Breast Denies pruritus, Denies lesions, Denies rash and Denies jaundice Neuro Reports Normal hearing present and Denies Abnormal speech present Endo Denies fatigue Aller/Immun Denies throat swelling and Denies tongue swelling Physical Exam Vital Signs: Last Vital Signs Pulse 85 02/21/25 13:33 BP 131/96 H 02/21/25 13:33 BMI result Body Mass Index 33.5 Const General: cooperative, no acute distress, well developed and well groomed Nutritional Appearance: well nourished and overweight Orientation/consciousness: oriented to person, oriented to place and oriented to time Limitations: No language barrier HEENT Head: Yes normocephalic and Yes atraumatic Eyes General: appearance normal, both eyes and all related structures Pupils: Equal, round and reactive pupils present Neck Neck: Yes normal visual inspection and Yes no lymphadenopathy Thyroid: Thyroid normal Resp Effort & Inspection: normal respiratory effort and able to speak in complete sentences Auscultation: clear to auscultation bilaterally Cardio Rate: regular rate Rhythm: regular rhythm Heart sounds: Normal, physiologic split S2 sound present Peripheral pulses: radial pulses present and posterior tibial pulses present GI Inspection: No distended, No Abdominal panniculus present and Yes obesity Palpation (GI): Soft to palpation, nontender, no guarding, not rigid and No hepatosplenomegaly present Percussion: Yes normal to percussion Auscultation: normal bowel sounds Rectal Exam - Male: Yes deferred Skin General skin exam: no rashes or lesions noted, turgor normal, skin not dry, no jaundice, No spider nevi and no striae Rashes: no rashes Nails: normal Neuro General: oriented to person, oriented to place and oriented to time Cranial nerves: Yes Equal, round and reactive pupils present and Yes Normal hearing present Speech: No Abnormal speech present Extrem General: Yes normal to inspection, No clubbing, No cyanosis and No edema Psych Appearance: grossly normal and well kempt Mental Status: mental status grossly normal Speech and movement: Normal speech and movement present Affect: normal affect Attitude: cooperative Thought process: Normal thought process present and not confabulating Thought content: Normal thought content present Insight: Fair insight present (Psych) and Limited insight present (Psych) Judgement: Fair judgement present (Psych) and Limited judgement present (Psych) Assessment & Plan Assessment & Plan (1) Rectal inflammation: Code(s): K62.89 - Other specified diseases of anus and rectum Category: Medical (2) Rectal burning: Code(s): R20.8 - Other disturbances of skin sensation Category: Medical Plan He tried the mesalamine but it did not seem to make much difference in the symptom presentation. Again, he seems to have chronic rectal inflammation from receptive anal intercourse and excessive water enemas. He did have quite a bit of improvement with the chronic burning and mucus after being treated with Flagyl, but we never were able to achieve complete remission. He is quite pleased with the progress we have made and will call us if he has any further exacerbations. Coding Level of Care Code Est Pt Level 3 (79781) Diagnoses Rectal inflammation K62.89 Rectal burning R20.8
[2025-02-21 13:33] VITALS: BP 131/96; PULSE 85; BMI 33.5
--- OUTSIDE RECORDS SUMMARY | 2025-02-21 13:56 | XMS_ITS | Clinical Summary ---
Author Organization [employer] Address [address] [facility] 7t [place] [address] Care Team Providers Care Assistant Purchasing Manager Name Role Phone AnsleyIlana carrillo JEFF Primary Care Provider [phone] Allergies Active Allergy Reactions Criticality Noted Date Comments Penicillins Other 10/22/2022 Hiccups with pills only Medications doxycycline (Vibra-Tabs) 100 MG tablet Take 1 tablet (100 mg) by mouth Once per day. Take 2 tablets within 72 hours of unprotected sex 30 tablet 03/22/20 Active Hospital, Clinic, or Other Facility Administered Medication Ordered Dose Route Frequency Start Date End Date Status doxycycline (Vibramycin) capsule 100 mgIndications:Chla mydia 100 mg PO 2 times daily 11/07/2024 02/20/2025 Discontinue d Active Problems Problem Noted Date Diagnosed Date Possible exposure to STI 02/20/2025 Obesity (BMI 30-39.9) 02/20/2025 Dietary counseling 02/20/2025 Assessment & Plan (02/20/2025 2:46 PM EDT): Dietary Recommendations: Fruits, vegetables, whole grains, protein foods, and fat-free or low-fat dairy products are healthy choices. Eat different types of protein foods in your diet. This can include seafood, lean meats, poultry, beans, peas, lentils, nuts, seeds, soy products, and eggs. Limit foods and beverages higher in added sugars, saturated fat, and sodium. Exercise Recommendations: At least 150 minutes of moderate-intensity physical activity per week, or an equivalent combination of moderate- and vigorous-intensity activity Exercise counseling 02/20/2025 Elevated lipoprotein(a) 03/02/2024 Preventative health care 04/16/2023 Overview (04/16/2023): -next physical exam due after 02/13/2023 -eye care facilitated by -dental home is Body dysmorphic disorder 04/16/2023 Overview (04/16/2023): In the past, Qiana has concerning expectations for his body including desire to loose 40 lbs despite being thin and wanting a flatter chest and future surgeries including procedure for chafing of thighs. He likely hs body dysmorphic disorder. He was not open to this idea. On pre-exposure prophylaxis for HIV 04/16/2023 Overview (04/16/2023): -Pt treated for chlamydia, anal rectal gonorrhea, and oropharyngeal -hx tx syphilius Chronic low back pain 01/21/2023 Overview (01/21/2023): Most recent MRI 06/01/2019 Impression: moderate disc herniation L5-S1 causing mild flattening the dural sac abutting but not definitely displacing the right S1 nerve root and causing mild right-sided foraminal stenosis. Assessment & Plan (01/21/2023 3:57 PM EDT): MRI 06/01/2019 Impression: moderate disc herniation L5-S1 causing mild flattening the dural sac abutting but not definitely displacing the right S1 nerve root and causing mild right-sided foraminal stenosis. Patient informed me of this condition, he is followed by [facility]. No concerns today. States he had appointment with a couple of days ago and they are ordering a new MRI. 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 No prior RPR titer in chart. Patietn was given Bicillin IM x 2 and PO doxycyline x 7 days and completed treatment. Mixed anxiety depressive disorder 09/30/2021 Overview (04/16/2023): Now controlled. Multiple dx including anxiety, depression and PTSD. No longer followed by therapist MANDY Rodríguez at [facility] in [place] [phone]. Was seeing Dr. Samantha Arnett [address] [place] [address] room 13. [phone] Dyslipidemia 09/30/2021 Overview (04/16/2023): Lab Results Component Value Date CHOLESTEROL 240 (H) 04/08/2022 LDLCHOL 154 (H) 04/08/2022 LDLCHOL 179 (H) 03/07/2021 HDLCHOL 38 (L) 04/08/2022 CHOLHDLRAT 6.3 (H) 04/08/2022 -continue lifestyle modifications Genital herpes simplex 09/30/2021 Resolved Problems Problem Noted Date Diagnosed Date Resolved Date Routine adult health maintenance 01/21/2023 04/16/2023 Assessment & Plan (01/21/2023 5:47 PM EDT): PHQ9: 0 STI: reports had recent sti testing. Contraception: no partner, multiple partners, trying to be safe. Condoms. Male partners. Substance use: denies tobacco, drugs, etoh, and marijuana. Lipids: labs ordered. [facility], last visit this year. Dental home: 2 months ago last visit. [facility] dental, has appointment with them this week. Encounters Date Type Department Care Team Description 02/20/2025 2:00 PM EDT Office Visit [facility] [address] [place] [phone] Ilana Owens NP Preventative health care (Primary Dx); Possible exposure to STI; Obesity (BMI 30-39.9); Dietary counseling; Exercise counseling 02/20/2025 Travel 02/19/2025 Travel 02/13/2025 Patient Outreach [facility] [address] [place] [address] Ilana Owens NP Pre-visit Planning (LVM) 12/02/2024 Population Health Risk Score [facility] () [address] [address] Provider, Population Health Generic from Last 3 Months Immunizations Immunization Administration Dates Next Due Hep A, Adult 09/20/2018,08/25/2008 Hep B, adult 04/06/2019,09/20/2018,08/25/2008 Influenza Injectable Quadriv alant Preservative Free IIV4 MDCK 03/05/2022,03/18/2019 Influenza injectable quadriv alent preservative free 03/04/2023,03/09/2018,04/01/2017,2016 Influenza, IIV3, injectable 02/19/2021,0 03/09/2018,04/01/2017,2016,03/31/2012,04/24/2011 Smallpox Mpox, Live Attenuat ed, Preservative Free 02/06/2022 TD (adult), 2 Lf tetanus tox oid, preservative free, adsorbed 08/25/2008 Tdap 09/20/2018,08/25/2008 Family History Medical History Relation Name Comments Diabetes type II Father Bipolar disorder Mother Diabetes type II Mother Heart disease Mother Hypertension Mother Stroke Mother Relation Name Status Comments Father Mother Social History Tobacco Use Types Packs/Day Years [...] Orientation Wayne 02/19/2025 5: 36 PM EDT Last Filed Vital Signs Vital Sign Reading Time Taken Comments Blood Pressure 124/82 02/20/2025 2:02 PM EDT Pulse 88 02/20/2025 2:02 PM EDT Temperature 37 C (98.6 F) 02/20/2025 2:02 PM EDT Respiratory Rate 21 02/20/2025 2:02 PM EDT Oxygen Saturation 98% 01/06/2024 2:09 PM EDT Inhaled Oxygen Concentration - - Weight 85.7 kg (189 lb) 02/20/2025 2:02 PM EDT Height 157 cm (5' 1.81 ) 02/20/2025 2:02 PM EDT Body Mass Index 34.78 02/20/2025 2:02 PM EDT Plan of Treatment Health Maintenance Due Date Last Done Comments Family Planning (PISQ) 2001 HPV Vaccines (1 - Male 3-dose series) 2001 COVID-19 Vaccine ( season) 2024 03/05/2022, 06/07/2021, 08/26/2020, Additional history exists Disability Screening 02/19/2026 02/19/2025 Alcohol/Substance Use Screening 02/20/2026 02/20/2025 Depression Screening 02/20/2026 02/20/2025, 02/21/20 SDOH Screening 02/20/2026 02/20/2025 Tobacco Screening 02/20/2026 02/20/2025 DTaP/Tdap/Td Vaccines (4 - Td or Tdap) 09/20/2028 09/20/2018, 08/25/2008, 08/25/2008 Lipid Panel 01/05/2029 01/06/2024, 03/29, 03/07/2021 Zoster Vaccines (1 of 2) 2036 RSV Patients and Patients Aged 60 years or older (1 - 1-dose 75+ series) 2061 Hepatitis A Vaccines Completed 09/20/2018, 08/25/19 Hepatitis B Vaccines Completed 04/06/2019, 09/20/2018, 08/25/2008 HIV Screening Completed 10/31/2024, 11/2024, 08/04/2024, Additional history exists Hepatitis C Screening Completed 10/31/2024, 022 Influenza Vaccine Completed 02/16/2025, , 03/04/2023, Additional history exists HIB Vaccines Aged Out No longer eligi ble based on patient's age to complete this topic IPV Vaccines Aged Out No longer eligi ble based on patient's age to complete this topic Meningococcal B Vaccine Aged Out No l onger eligible based on patient's age to complete this topic Meningococcal Vaccine Aged Out No servando elsa eligible based on patient's age to complete this topic Pneumococcal Vaccine: Pediatrics (0 to 5 Years) and At-Risk Patients (6 to 49) Years Aged Out No longer eligible based on patient's age to complete this topic RSV under 20 months Aged Out No longe r eligible based on patient's age to complete this topic Rotavirus Vaccines Aged Out No longer eligible based on patient's age to complete this topic Procedures Procedure Name Priority Date/Time Associated Diagnosis Comments HEPATITIS C ANTIBODY ([facility]) Routine 10/31/2024 HIV ANTIBODY/ANTIGEN ([facility]) Routine 10/31/2024 LIPID PANEL, STANDARD Routine 01/06/2024 2:50 PM EDT Dyslipidemia from Last 3 Months or Most Recently Relevant to Health Maintenance Results * Hepatitis C Antibody ([facility]) (10/31/2024) Hepatitis C Ab Nonreactive Blood 10/31/2024 Historical Provider MD LAB BLOOD ORDERABLES Daina l Result * HIV Ab/Ag ([facility]) (10/31/2024) HIV Ag/Ab Nonreactive Blood 10/31/2024 Historical Provider LAB BLOOD ORDERABLES Daina l Result * (ABNORMAL) Lipid Panel, Standard (01/06/2024 2:50 PM EDT) Triglycerides 272(H) <150 mg/dL [facility] Comment:Desirable Triglyceri de: less than 150 mg/dLBorderline High Triglyceride 150-199 mg/dLHigh Triglyceride: 200-499 mg/dLVery High Triglyceride: greater than or equal to 5OO mg/dL Cholesterol 248(H) <200 mg/dL [facility] Comment:Desirable Cholestero l: less than 200 mg/dLBorderline High Cholesterol: 200-239 mg/dLHigh Cholesterol: greater than 239 mg/dL LDL Cholesterol Calculated 153(H) <100 mg/dL [facility] Comment:Desirable LDL: less than 100 mg/dLNear Optimal/Above Optimal LDL: 110- 129 mg/dLBorderline High LDL: 130-159 mg/dLHigh LDL: 160-189 mg/dLVery High LDL: greater than or equal to 190 mg/dL HDL Cholesterol 41 >40 mg/dL [facility] Comment:Desirable HDL: great er than 40 mg/dL Note: This HDL assay may give artificially low results in patients with liver disease. Blood Venous blood specimen / Unknown 01/06/2024 2:50 PM EDT 01/06/2024 3:52 PM EDT Madeleine Botas FLATCAR WHACKER LAB BLOOD ORDERABLES Final Resu lt [facility] [address] [place] [address] [phone] from Last 3 Months or Most Recently Relevant to Health Maintenance Insurance [facility] C3 HSN FULL Care Teams Assistant Purchasing Manager Relationship Specialty Start Date End Date Ilana Owens NP [address] [place] [address] PCP - General Family Medicine 02/12/24
--- OUTSIDE RECORDS SUMMARY | 2025-02-21 13:56 | XMS_ITS | Encounter Summary ---
Author Organization [employer] Address [address] [place] [address] 7t [place] [address] Care Team Providers Care Armature Repairer Name Role Phone Crow Taylor Primary Care Provider Unavail Alison Hubbard ANP Primary Care Provider [phone] Madeleine Peña Primary Care Provider [phone] Ilana Owens NP Primary Care Provider [phone] Encounter Details Date Type Department Care Team (Late st Contact Info) Description 12/31/2022 Telephone [facility] [address] [place] [address] Crow Taylor AGNP Social History Tobacco Use Types Packs/Day Years Used Date Smoking Tobacco: Never Smokeless Tobacco: Never Sex and Gender Information Value Date Recorded Sex Assigned at Male 04/28/2022 10:20 AM EDT Legal Sex Male 10:20 AM EDT Gender Identity Male 04/28/2022 10:20 AM EDT Sexual Orientation Wayne 02/19/2025 5: 36 PM EDT documented as of this encounter Plan of Treatment Not on file documented as of this encounter Visit Diagnoses Not on filedocumented in this encounter Additional Health Concerns Assessment Noted Time PHQ-9 Depression Total Score: 0 10/23/19 3:04 PM EDT documented as of this encounter Care Teams Armature Repairer Relationship Specialty Start Date End Date Crow Taylor AGNP PCP - General Family Medicine 10/28/22 03/18/23 Alison Tipton ANP [address] [place] [address] PCP - General Family Medicine 07/07/23 10/12/23 Madeleine Peña FNP [address] [place] [address] PCP - General Family Medicine 11/04/23 02/11/24 Ilana Owens NP [address] [place] [address] PCP - General Family Medicine 02/12/24 documented as of this encounter
--- OUTSIDE RECORDS SUMMARY | 2025-02-21 13:56 | XMS_ITS | Encounter Summary ---
Author Organization [employer] Address [address] [facility] [address]t [place] [address] Care Team Providers Care Rigger Up Name Role Phone Ilana Owens JEFF Primary Care Provider [phone] Encounter Details Date Type Department Care Team (Latest Contact Info) Description 02/20/2025 Travel Social History Tobacco Use Types Packs/Day Years Used Date Smoking Tobacco: Never Passive Smoke Exposure: Never Smokeless Tobacco: Never Alcohol Use Standard [...] PM EDT documented as of this encounter Functional Status * Over the [...] Trouble relaxing 0 02/20/2025 2:09 PM EDT S kristineTolu [place] Being so restless that it is [...] Sanchez [place] documented as of this encounter Plan of Treatment Not on file documented as of this encounter Visit Diagnoses Not on filedocumented in this encounter Additional Health Concerns Assessment Noted Time PHQ-9 Depression Total Score: 0 02/21/20 2:09 PM EDT documented as of this encounter Care Teams Rigger Up Relationship Specialty Start Date End Date Ilana Owens NP [address] [place] [address] PCP - General Family Medicine 02/12/24 documented as of this encounter
--- OUTSIDE RECORDS SUMMARY | 2025-02-21 13:56 | XMS_ITS | Encounter Summary ---
Author Organization [employer] Address [address] [facility] 7t [place] [address] Care Team Providers Care Odd Piece Checker Name Role Phone Citlali Garcia MD Primary Care Provider [phone] Crow Taylor Primary Care Provider Unavail Alison Hubbard Primary Care Provider [phone] Madeleine Peña Primary Care Provider [phone] Ilana Owens NP Primary Care Provider Reason for Visit * Reason Onset Date Comments Referral 08/22/2022 Encounter Details Date Type Department Care Team (Late st Contact Info) Description 08/22/2022 Telephone [facility] [address] [place], [place] [phone] Citlali Garcia MD [address] [place], [place] [phone] Referral Social History Tobacco Use Types Packs/Day Years Used Date Smoking Tobacco: Never Assessed Sex and Gender Information Value Date Recorded Sex Assigned at Male 04/28/2022 10:20 AM EDT Legal Sex Male 10:20 AM EDT Gender Identity Male 04/28/2022 10:20 AM EDT Sexual Orientation Wayne 02/19/2025 5: 36 PM EDT documented as of this encounter Miscellaneous Notes * Telephone Encounter - Isadora Islas RN - 08/22/2022 12:00 PM EST T/C returned to pt re below message. He is requesting a referral for [facility]. States he used to go there for his back around 2 years ago. He called them for appt and they stated needs new referral. Alsois looking for status on derm referral placed in April. Informed it was sent will send status check to derm [facility]. Lastly, is interested in [facility] dental. Informed no referral needed, can call and hit button for dental to make an appt. Pt verbalized understanding and denied having any further questions or concerns at this time. * Telephone Encounter - Waldemar Alexis Roxana - 08/22/2022 9:20 AM EST Tc from pt requesting the status of a referral requested for a new doctor. Pt was not specific in what the referral was exactly for pt just requested to speak with the doctor or a nurse. Please contact pt at [phone] documented in this encounter Plan of Treatment Not on file documented as of this encounter Visit Diagnoses Not on filedocumented in this encounter Care Teams Odd Piece Checker Relationship Specialty Start Date End Date Citlali Garcia MD [address] [place] [address] PCP - General Family Medicine 07/30/18 10/27/22 Crow Taylor AGNP [address] [place] [address] PCP - General Family Medicine 10/28/22 03/18/23 Alison Tipton ANP [address] [place] [address] PCP - General Family Medicine 07/07/23 10/12/23 Madeleine Pñea FNP [address] [place] [address] PCP - General Family Medicine 11/04/23 02/11/24 Ilana Owens NP [address] [place] [phone] PCP - General Family Medicine 02/12/24 documented as of this encounter
--- OUTSIDE RECORDS SUMMARY | 2025-02-21 13:56 | XMS_ITS | Encounter Summary ---
Author Organization [employer] Address [address] [place] [address] 7[address] [place] [address] Care Team Providers Care Order Entry Representative Name Role Phone Citlali Garcia MD Primary Care Provider [phone] Crow Taylor Primary Care Provider Unavail Alison Hubbard Primary Care Provider Madeleine Peña Primary Care Provider [phone] Ilana Owens NP Primary Care Provider Reason for Visit * Reason Onset Date Comments Appointment Request 09/24/2022 Encounter Details Date Type Department Care Team (Late st Contact Info) Description 09/24/2022 Telephone [facility] [address] [place], [place] [phone] Citlali Garcia MD [address] [place], [place] [phone] Appointment Request Social History Tobacco Use Types Packs/Day Years Used Date Smoking Tobacco: Never Assessed Sex and Gender Information Value Date Recorded Sex Assigned at Male 04/28/2022 10:20 AM EDT Legal Sex Male 10:20 AM EDT Gender Identity Male 04/28/2022 10:20 AM EDT Sexual Orientation Wayne 02/19/2025 5: 36 PM EDT documented as of this encounter Miscellaneous Notes * Telephone Encounter - Manav Metz - 09/24/2022 10:17 AM EDT Tc from pt requesting to r/s appt on 09/29/22 ( Lip lesion ) Please contact pt at [phone] documented in this encounter Plan of Treatment Not on file documented as of this encounter Visit Diagnoses Not on filedocumented in this encounter Care Teams Order Entry Representative Relationship Specialty Start Date End Date Citlali Garcia MD [address] [place] [address] PCP - General Family Medicine 07/30/18 10/27/22 Crow Taylor AGNP [address] [place] [address] PCP - General Family Medicine 10/28/22 03/18/23 Alison Tipton ANP [address] [place] [address] PCP - General Family Medicine 07/07/23 10/12/23 Madeleine Peña FNP [address] [place] [address] PCP - General Family Medicine 11/04/23 02/11/24 Ilana Owens NP [address] [place] [address] PCP - General Family Medicine 02/12/24 documented as of this encounter
--- OUTSIDE RECORDS SUMMARY | 2025-02-21 13:56 | XMS_ITS | Encounter Summary ---
Author Organization [employer] Address [address] [facility] [address]t [place] [address] Care Team Providers Care Chief Cardiopulmonary Technologist Name Role Phone Ilana Owens JEFF Primary Care Provider [phone] Encounter Details Date Type Department Care Team (Latest Contact Info) Description 02/19/2025 Travel Social History Tobacco Use Types Packs/Day [...] documented as of this encounter Care Teams Chief Cardiopulmonary Technologist Relationship Specialty Start Date End Date Ilana Owens NP [address] [place] [address] PCP - General Family Medicine 02/12/24 documented as of this encounter
--- OUTSIDE RECORDS SUMMARY | 2025-02-21 13:56 | XMS_ITS | Encounter Summary ---
Author Organization [employer] Address [address] [facility] [address]t [place] [address] Care Team Providers Care Timber Supervisor Name Role Phone Ilana Owens NP Primary Care Provider [phone] Reason for Visit * Reason Onset Date Comments Appointment Request 11/08/2024 Encounter Details Date Type Department Care Team ([facility] st Contact Info) Description 11/08/2024 Telephone [facility] [address] [place], [place] [phone] Ilana Owens NP [address] [place], [place] [phone] Appointment Request Social History Tobacco Use Types [...] with others, in a hotel, in a custodial, living outside on the street, on a [...] Time PHQ-9 Depression Total Score: 6 01/06/20 24 3:01 PM EDT documented as of this encounter Care Teams Timber Supervisor Relationship Specialty Start Date End Date lIana Owens NP [address] [place] [address] PCP - General Family Medicine 02/12/24 documented as of this encounter
== END 2025-02-21 13:57 | disposition home or self-care (01) ==
LOC: HO.HGI 13:08
PROVIDERS: PCP Family Medicine; Visit Provider Nurse Practitioner
DX: K62.89 Other specified diseases of anus and rectum (principal); R20.8 Other disturbances of skin sensation
CPT/HCPCS: 99213

== ENCOUNTER 2025-05-23 11:28 | Outpatient (REF) | payer MEDICAID, SELFPAY ==
--- OUTSIDE RECORDS SUMMARY | 2025-05-19 10:15 | XMS_ITS | Encounter Summary ---
Author Organization [employer] Address [address] [facility] 7t [place] [address] Care Team Providers Care Environmental Officer Name Role Phone RomanIlana JEFF Primary Care Provider [phone] Encounter Details Date Type Department Care Team (Late st Contact Info) Description 05/19/2025 10:15 AM EST Office Visit [facility]INE [address] [place], [place] [phone] Alison Tipton ANP [address] [place], [place] [phone] On pre-exposure prophylaxis for HIV (Primary Dx); Elevated blood pressure reading without diagnosis of hypertension Social History Tobacco Use Types Packs/Day Years [...] Sign Reading Time Taken Comments Blood Pressure 120/100 05/19/2025 10:21 AM EST Pulse 78 05/19/2025 10:21 AM EST Temperature 36.7 C (98 F) 05/19/2025 10:21 AM EST Respiratory Rate 15 05/19/2025 10:21 AM EST Oxygen Saturation 99% 05/19/2025 10:21 AM EST Inhaled Oxygen Concentration - - Weight 85.3 kg (188 lb 2 oz) 05/19/2025 10:21 AM EST Height 157 cm (5' 1.81 ) 05/19/2025 10:21 AM EST Body Mass Index 34.62 05/19/2025 10:21 AM EST documented in this encounter Patient Instructions * Patient Instructions* DAVID Bautista - 05/19/2025 10:15 AM EST Images from the original note were not included. The ideal blood pressure would be < 130/80 ( normal is < 120/80). For your blood pressure, it is recommended to eat a low salt diet, get regular exercise, check your blood pressure at home, and take medications as prescribed. If you smoke, please decrease or quit. Call clinic if blood pressure is frequently >150/90. Go to ED/call 911 if > 170/100 and having symptoms that could include headache, visual changes, chest pain, altered mental status or shortness of breath. documented in this encounter Progress Notes * DAVID Bautista - 05/19/2025 10:15 AM EST Subjective Patient ID: Qiana Briceno is a 39 y.o. male who presents for PrEP consult. HPI Qiana is here today for discussion of PrEP long acting injectable. Did not tolerate PO truvada previously d/t GI upset. Has difficulty taking pills. Worried both about HIV risk and any medication side effects. Has DoxyPEP for prn use. Non-smoker Review of Systems Constitutional: Negative for fatigue, fever and unexpected weight change. HENT: Negative for sore throat. Respiratory: Negative for chest tightness, shortness of breath and wheezing. Gastrointestinal: Negative for constipation. Endocrine: Negative for polydipsia, polyphagia and polyuria. Genitourinary: Negative for difficulty urinating and dysuria. Musculoskeletal: Negative for back pain. Skin: Negative for rash. Neurological: Negative for headaches. Objective BP (!) 120/100 (BP Location: Left arm, Patient Position: Sitting, BP Cuff Size: Adult) Pulse 78 Temp 98 ??F (36.7 ??C) (Oral) Resp 15 Ht 5' 1.81 (1.57 m) Wt 188 lb 2 oz (85.3 kg) SpO2 99% BMI 34.62 kg/m?? Physical Exam Constitutional: General: He is not in acute distress. Appearance: Normal appearance. He is not ill-appearing. HENT: Head: Normocephalic and atraumatic. Eyes: Extraocular Movements: Extraocular movements intact. Cardiovascular: Rate and Rhythm: Normal rate. Pulmonary: Effort: Pulmonary effort is normal. No accessory muscle usage or respiratory distress. Neurological: Mental Status: He is alert and oriented to person, place, and time. Psychiatric: Mood and Affect: Mood normal. Behavior: Behavior normal. Assessment/Plan Diagnoses and all orders for this visit: On pre-exposure prophylaxis for HIV No longer on PrEP. Has DoxyPEP for prn use. Not interested in injectable prep at this time Worried about what he puts into body, that he might have side effects, would like to consider 2-1-1PrEP - gave handout to consider. This may not work for pt if truvada was in fact the med that pt had side effects to (versus descovy, which is not approved for 2-1-1 dosing) We discussed Apretude (q2mo injection) can start w/ 1 mo of PO med to see if he tolerates ok, but freq of injection would be too much for pt, Worried that he travels a lot and would be unable to keep scheduled appts for q6 mo injectable. Elevated blood pressure reading without diagnosis of hypertension Exercise, low salt diet, gave BP log to record onto and bring to PCP visit next wk - Blood Pressure kit; 1 each 2 times daily. Future Appointments Date Time Provider Department Center 05/23/2025 11:30 AM Ilana Owens NP MEDICINE [facility] documented in this encounter Plan of Treatment Not on file documented as of this encounter Visit Diagnoses Diagnosis On pre-exposure prophylaxis for HIV- Primary Elevated blood pressure reading without diagnosis of hypertension documented in this encounter Additional Health Concerns Assessment Noted Time PHQ-9 Depression Total Score: 0 02/21/20 25 2:09 PM EDT documented as of this encounter Care Teams Environmental Officer Relationship Specialty Start Date End Date Ilana Owens NP [address] [place] [address] PCP - General Family Medicine 02/12/24 documented as of this encounter
--- OUTSIDE RECORDS SUMMARY | 2025-05-23 11:30 | XMS_ITS | Encounter Summary ---
Author Organization [employer] Address [address] [facility] 7t [place] [address] Care Team Providers Care Turf Manager Name Role Phone Ilana Owens NP Primary Care Provider [phone] Encounter Details Date Type Department Care Team (Late st Contact Info) Description 05/23/2025 11:30 AM EST Office Visit [facility] [address] [place], [place] [phone] Ilana Owens NP [address] [place], [place] [phone] Polycythemia (Primary Dx); Exposure to potential infection; Elevated blood pressure reading Social History Tobacco Use Types Packs/Day Years [...] Sign Reading Time Taken Comments Blood Pressure 126/90 05/23/2025 11:02 AM EST Pulse 90 05/23/2025 11:02 AM EST Temperature 36 C (96.8 F) 05/23/2025 11:02 AM EST Respiratory Rate 14 05/23/2025 11:02 AM EST Oxygen Saturation 96% 05/23/2025 11:02 AM EST Inhaled Oxygen Concentration - - Weight 83.2 kg (183 lb 6 oz) 05/23/2025 11:02 AM EST Height 154.9 cm (5' 1 ) 05/23/2025 11:02 AM EST Body Mass Index 34.65 05/23/2025 11:02 AM EST documented in this encounter Progress Notes * Ilana Owens NP - 05/23/2025 11:30 AM EST Qiana Briceno, 39-year-old male - History of high blood pressure, reports always having high blood pressure - Family history of high blood pressure - Reports frequent urination, states I do pee a lot and always have - Previously tried control pills, caused stomach discomfort - Denies chest pain or pressure - Denies smoking Problem List[1] Medical History[2] Allergies[3] Review of Systems Constitutional: Negative for activity change and appetite change. Respiratory: Negative for apnea and chest tightness. Cardiovascular: Negative for chest pain and leg swelling. Genitourinary: Negative for difficulty urinating and dysuria. Neurological: Negative for dizziness and facial asymmetry. BP (!) 126/90 (BP Location: Left arm, Patient Position: Sitting, BP Cuff Size: Adult) Pulse 90 Temp 96.8 ??F (36 ??C) (Oral) Resp 14 Ht 5' 1 (1.549 m) Wt 183 lb 6 oz (83.2 kg) SpO2 96% BMI 34.65 kg/m?? Physical Exam Vitals reviewed. Constitutional: Appearance: Normal appearance. HENT: Head: Normocephalic. Cardiovascular: Rate and Rhythm: Normal rate. Heart sounds: Normal heart sounds. Pulmonary: Breath sounds: Normal breath sounds. Abdominal: Palpations: Abdomen is soft. Musculoskeletal: Cervical back: Neck supple. Neurological: Mental Status: He is alert. Psychiatric: Mood and Affect: Mood normal. - CARDIOVASCULAR: Heart auscultation normal, systolic blood pressure normal, diastolic blood pressure elevated. Results: Assessment & Plan Polycythemia Orders: CBC auto differential; Future Comprehensive Metabolic Panel; Future Exposure to potential infection Elevated blood pressure reading Assessment & Plan Polycythemia: - Elevated red blood cell count noted; may represent a normal variant but requires monitoring to ensure levels are not increasing. - Repeat blood count to monitor red blood cell levels. Exposure to potential infection: - No current exposure confirmed; prescription for post-exposure prophylaxis (Truvada) provided as an option for future potential exposures. - Prescribed Truvada (30 tablets) for post-exposure prophylaxis, to be taken as needed following potential exposure. Prescription - Truvada (emtricitabine/tenofovir) for post-exposure prophylaxis: 2 tablets per exposure event, one as soon as possible after unprotected sex and one 24 hours later; dispense 30 tablets with refillsavailable. Current Medications[4] Based on our discussion, I have outlined the following instructions for you: - Schedule another blood test to check your red blood cell levels. - You have been given Truvada (30 tablets) to use if you think you have been exposed to an infection. Only take the medicine if you believe you have had a possible exposure. Thank you again for your visit, and we look forward to supporting you in your journey to better health. This note was drafted using Ambient (AI) technology. The patient/patient's guardian has been informed and has consented to the use of this technology: Yes [1] Patient Active Problem List Diagnosis Mixed anxiety depressive disorder Dyslipidemia Genital herpes simplex Latent early syphilis Palpitation Chronic low back pain Class 1 obesity due to excess calories without serious comorbidity with body mass index (BMI) of 31.0 to 31.9 in adult Preventative health care Body dysmorphic disorder On pre-exposure prophylaxis for HIV Elevated lipoprotein(a) Possible exposure to STI Obesity (BMI 30-39.9) Dietary counseling Exercise counseling Unprotected sexual intercourse Polycythemia Exposure to potential infection Elevated blood pressure reading [2] Past Medical History: Diagnosis Date Anxiety Back pain Depression Herpes Hyperlipidemia [3] Allergies Allergen Reactions Penicillins Other Hiccups with pills only [4] Current Outpatient Medications: Blood Pressure kit, 1 each 2 times daily., Disp: 1 kit, Rfl: 0 emtricitabine-tenofovir DF (Truvada) 200-300 MG tablet, Take 1 tablet by mouth Once per day., Disp:30 tablet, Rfl: 1 documented in this encounter Miscellaneous Notes * Assessment & Plan Note - Ilana Owens NP - 05/23/2025 11:30 AM ESTAssociated Problem(s): Polycythemia Orders: CBC auto differential; Future Comprehensive Metabolic Panel; Future * Assessment & Plan Note - Ilana Owens NP - 05/23/2025 11:30 AM ESTAssociated Problem(s): Exposure to potential infection * Assessment & Plan Note - Ilana Owens NP - 05/23/2025 11:30 AM ESTAssociated Problem(s): Elevated blood pressure reading documented in this encounter Plan of Treatment Not on file documented as of this encounter Procedures Procedure Name Priority Date/Time Associated Diagnosis Comments CBC WITH AUTO DIFFERENTIAL Routine 05/23/2025 11:43 AM EST Polycythemia COMPREHENSIVE METABOLIC PANEL Routine 05/23/2025 11:43 AM EST Polycythemia documented in this encounter Results * (ABNORMAL) Comprehensive Metabolic Panel (05/23/2025 11:43 AM EST) Sodium 139 135 - 145 mmol/L [facility] Potassium 4.2 3.3 - 5.1 mmol/L [facility] Chloride 102 96 - 108 mmol/L [facility] Carbon Dioxide 29 22 - 29 mmol/L [facility] Anion Gap 12 12 - 20 [facility] Urea Nitrogen (BUN) 11 9 - 16 mg/dL [facility] Creatinine, Serum 0.89 0.5 - 1.4 mg/dL [facility] Estimated Glomerular Filt Rate >60 [facility] Comment:Chronic Kidney Disea se: Estimated GFR < 60 mL/min/[id number] Kidney Disease: Estimated GFR < 15 mL/min/1.73m2 Glucose 96 60 - 115 mg/dL [facility] Calcium 9.6 8.4 - 10.2 mg/dL [facility] Bilirubin, Total 0.7 0.0 - 1.0 mg/dL [facility] Aspartate Amino Transferase 35 5 - 37 U/L [facility] Alanine Aminotransferase 52(H) 0 - 40 U/L [facility] Total Protein 7.9 6.5 - 8.0 g/dL [facility] Albumin Level 5.0 3.5 - 5.0 g/dL [facility] Alkaline Phosphatase 77 39 - 117 U/L [facility] Blood Venous blood specimen / Unknown 05/23/2025 11:43 AM EST 05/23/2025 1:11 PM EST us Ilana Graef DIRECTOR WRITING LAB BLOOD ORDERABLES Final Resul t [facility] [address] [place], [place] [phone] * (ABNORMAL) CBC auto differential (05/23/2025 11:43 AM EST) White Blood Count 6.8 4.8 - 10.8 X10*3/uL [facility] Red Blood Count 5.95(H) 4.60 - 5.80 X10*6/uL [facility] Hemoglobin 15.0 14.0 - 18.0 g/dl [facility] Hematocrit 47.8 42.0 - 52.0 % [facility] Mean Corpuscular Volume 80.3 80.0 - 98.0 fL [facility] Mean Corpuscular Hemoglobin 25.2(L) 27.0 - 33.0 pg [facility] Mean Corpuscular HGB Conc 31.4 31.0 - 36.0 g/dl [facility] Red Cell Distribution Width 15.0 11.0 - 16.0 % [facility] Platelet Count 331 160 - 400 X10*3/uL [facility] Mean Platelet Volume 10.0 9.4 - 12.4 fL [facility] Neutrophils Percent Auto 47.6 45 - 73 % [facility] Imm Gran Pct Auto 0.4 0.0 - 0.4 % [facility] Lymphocytes Percent Auto 39.5 20 - 40 % [facility] Monocytes Percent Auto 10.0 2 - 11 % [facility] Eosinophils Percent Auto 1.9 0 - 4 % [facility] Basophils Percent Auto 0.6 0 - 2 % [facility] NRBC Pct Auto 0.0 0.0 - 0.2 /100WBC [facility] Neutrophils Absolute Auto 3.2 2.0 - 8.3 x10*3/uL [facility] Imm Gran Abs Auto 0.03 0.00 - 0.03 X10*3/uL [facility] Lymphocytes Absolute Auto 2.7 1.2 - 4.9 X10*3/uL [facility] Monocytes Absolute Auto 0.7 0.1 - 1.2 X10*3/uL [facility] Eosinophils Absolute Auto 0.1 0.0 - 0.4 X10*3/uL [facility] Basophils Absolute Auto 0.0 0.0 - 0.2 X10*3/uL [facility] NRBC Abs Auto 0.000 0.0 - 0.012 X10*3/uL [facility] Blood Venous blood specimen / Unknown 05/23/2025 11:43 AM EST 05/23/2025 1:11 PM EST us Ilana Owens NP LAB BLOOD ORDERABLES Final Resul t [facility] [address] [place] [address] [phone] documented in this encounter Visit Diagnoses Diagnosis Polycythemia- Primary Polycythemia, secondary Exposure to potential infection Elevated blood pressure reading Elevated blood pressure reading without diagnosis of hypertension documented in this encounter Additional Health Concerns Assessment Noted Time PHQ-9 Depression Total Score: 0 02/21/20 25 2:09 PM EDT documented as of this encounter Care Teams Turf Manager Relationship Specialty Start Date End Date Ilana Owens NP [address] [place] [address] PCP - General Family Medicine 02/12/24 documented as of this encounter
[2025-05-23 13:19] LABS: MANUAL DIFF FLAG NO
[2025-05-23 13:44] LABS: Hematocrit 47.8 % (42.0-52.0); Hemoglobin 15.0 g/dl (14.0-18.0); Imm Gran Abs Auto 0.03 X10*3/uL (0.00-0.03); Imm Gran Pct Auto 0.4 % (0.0-0.4); Lymphocytes Absolute Auto 2.7 X10*3/uL (1.2-4.9); Mean Corpuscular HGB Conc 31.4 g/dl (31.0-36.0); Mean Corpuscular Hemoglobin 25.2 pg (27.0-33.0); Mean Corpuscular Volume 80.3 fL (80.0-98.0); NRBC Abs Auto 0.000 X10*3/uL (0.0-0.012); NRBC Pct Auto 0.0 /100WBC (0.0-0.2); Platelet Count 331 X10*3/uL (160-400); Red Blood Count 5.95 X10*6/uL (4.60-5.80); White Blood Count 6.8 X10*3/uL (4.8-10.8)
[2025-05-23 14:23] LABS: Alanine Aminotransferase 52 U/L (0-40); Albumin Level 5.0 g/dL (3.5-5.0); Alkaline Phosphatase 77 U/L (39-117); Anion Gap 12 (12-20); Aspartate Amino Transferase 35 U/L (5-37); Blood Urea Nitrogen 11 mg/dL (9-16); Calcium 9.6 mg/dL (8.4-10.2); Carbon Dioxide 29 mmol/L (22-29); Chloride 102 mmol/L (96-108); Cholesterol 268 mg/dL (<200); Estimated Glomerular Filt Rate > 60; HDL Cholesterol 38 mg/dL (>40); Potassium 4.2 mmol/L (3.3-5.1); Sodium 139 mmol/L (135-145); Total Protein 7.9 g/dL (6.5-8.0); Triglycerides 278 mg/dL (<150)
--- OUTSIDE RECORDS SUMMARY | 2025-05-23 15:11 | XMS_ITS | Encounter Summary ---
Author Organization [employer] Address [address] [facility] [address] [place] [address] Care Team Providers Care Administrative Officer Name Role Phone Ilana Owens NP Primary Care Provider [phone] Reason for Visit * Reason Onset Date Comments Appointment Request 11/08/2024 Encounter Details Date Type Department Care Team ([facility] st Contact Info) Description 11/08/2024 Telephone [facility] [address] [place], [place] [phone] Ilana Owens NP [address] [place], [place] [phone] Appointment Request Social History Tobacco Use Types [...] with others, in a hotel, in a alf, living outside on the street, on a [...] 10:20 AM EDT Sexual Orientation Wayne 02/19/2025 5 :36 PM EDT documented as of this encounter [...] documented as of this encounter Care Teams Administrative Officer Relationship Specialty Start Date End Date Ilana Owens NP [address] [place] [phone] PCP - General Family Medicine 02/12/24 documented as of this encounter
--- OUTSIDE RECORDS SUMMARY | 2025-05-23 15:11 | XMS_ITS | Encounter Summary ---
Author Organization [employer] Address [address] [facility] 7t [place] [address] Care Team Providers Care Vision Teacher Name Role Phone Ilana Owens JEFF Primary Care Provider Encounter Details Date Type Department Care Team (Latest Contact Info) Description 05/23/2025 Travel Social History Tobacco Use Types Packs/Day [...] documented as of this encounter Care Teams Vision Teacher Relationship Specialty Start Date End Date Ilana Owens NP [address] [place] [phone] PCP - General Family Medicine 02/12/24 documented as of this encounter
--- OUTSIDE RECORDS SUMMARY | 2025-05-23 15:12 | XMS_ITS | Encounter Summary ---
Author Organization [employer] Address [address] [facility] 7t [place] [address] Care Team Providers Care Head Teller Name Role Phone Ilana Owens JEFF Primary Care Provider [phone] Encounter Details Date Type Department Care Team (Latest Contact Info) Description 05/19/2025 Travel Social History Tobacco Use Types Packs/Day [...] documented as of this encounter Care Teams Head Teller Relationship Specialty Start Date End Date Ilana Owens NP [address] [place] [phone] PCP - General Family Medicine 02/12/24 documented as of this encounter
--- OUTSIDE RECORDS SUMMARY | 2025-05-23 15:12 | XMS_ITS | Encounter Summary ---
Author Organization [employer] Address [address] [facility] 7t [place] [address] Care Team Providers Care Burr Bench Hand Name Role Phone Ilana Owens NP Primary Care Provider Encounter Details Date Type Department Care Team ([facility] st Contact Info) Description 03/17/2025 Results Follow-Up [facility] MEDICINE [address] [place], [place] [phone] Ilana Owens NP [address] [place], [place] [phone] HIV Ab/Ag ([facility]) Social History Tobacco Use Types Packs/Day Years [...] as of this encounter Miscellaneous Notes * Result Encounter Note - Ilana Oewns NP - 03/17/2025 3:29 PM EDT Reviewed with pt via phone documented in this encounter Plan of Treatment Not on file documented as of this encounter Visit Diagnoses Not on filedocumented in this encounter Additional Health Concerns Assessment Noted Time PHQ-9 Depression Total Score: 0 02/21/20 2:09 PM EDT documented as of this encounter Care Teams Burr Bench Hand Relationship Specialty Start Date End Date Ilana Owens NP [address] [place] [address] PCP - General Family Medicine 02/12/24 documented as of this encounter
--- OUTSIDE RECORDS SUMMARY | 2025-05-23 15:12 | XMS_ITS | Encounter Summary ---
Author Organization [employer] Address [address] [facility] 7[address] [place] [address] Care Team Providers Care Nanosystems Engineer Name Role Phone Ilana Owens NP Primary Care Provider [phone] Reason for Visit * Reason Onset Date Comments chart prep 05/18/2025 Encounter Details Date Type Department Care Team ([facility] st Contact Info) Description 05/18/2025 Telephone [facility] MED[facility]INE [address] [place], [place] [phone] Alison Tipton ANP [address] [place], [place] [phone] chart prep Social History Tobacco Use Types Packs/Day Years [...] encounter Miscellaneous Notes * Telephone Encounter - Tani Alexis MA - 05/18/2025 9:08 AM EST Chart Prep Labs: done Images: not applicable Referrals: not applicable Vaccines due: Covid and HPV Screenings: not applicable Overdue care gaps: None documented in this encounter Plan of Treatment Not on file documented as of this encounter Visit Diagnoses Not on filedocumented in this encounter Additional Health Concerns Assessment Noted Time PHQ-9 Depression Total Score: 0 02/21/20 2:09 PM EDT documented as of this encounter Care Teams Nanosystems Engineer Relationship Specialty Start Date End Date Ilana Owens NP [address] [place] [id number] PCP - General Family Medicine 02/12/24 documented as of this encounter
--- OUTSIDE RECORDS SUMMARY | 2025-05-23 15:12 | XMS_ITS | Clinical Summary ---
Author Organization [employer] Address [address] [facility] 7t [place] [address] Care Team Providers Care Systems Software Manager Name Role Phone AnsleyIlana carrillo JEFF Primary Care Provider [phone] Allergies Active Allergy Reactions Criticality Noted Date Comments Penicillins Other 10/22/2022 Hiccups with pills only Medications Blood Pressure kitIndications:El evated blood pressure reading without diagnosis of hypertension 1 each 2 times daily. 1 kit 5 05/19/20 26 Active emtricitabine-ten ofovir DF (Truvada) 200-300 MG tablet Take 1 tablet by mouth Once per day. 30 tablet 1 5 05/23/20 26 Active doxycycline (Vibra-Tabs) 100 MG tablet Take 2 tablets (200 mg) by mouth Once per day for 1 day. Take with a full glass of water and do not lie down for at least 30 minutes after. 2 tablet 5 04/25/20 Active Problems Problem Noted Date Diagnosed Date Polycythemia 05/23/2025 Assessment & Plan (05/23/2025 11:28 AM EST): Orders: CBC auto differential; Future Comprehensive Metabolic Panel; Future Exposure to potential infection 05/23/2025 Assessment & Plan (05/23/2025 11:28 AM EST): Elevated blood pressure reading 05/23/2025 Assessment & Plan (05/23/2025 11:28 AM EST): Unprotected sexual intercourse 04/24/2025 Possible exposure to STI 02/20/2025 Obesity (BMI [...] -eye care facilitated by -dental home is Assessment & Plan (03/22/2025 9:33 AM EDT): Supportive care reviewed, Interested in STI prevention and HIV prevention in care with CRS Body dysmorphic disorder 04/16/2023 Overview (04/16/2023): In [...] of this condition, he is followed by spine and sport. No concerns today. States [...] past. No prior RPR titer in chart. Vernon was given Bicillin IM x 2 and PO doxycyline x 7 days and completed treatment. Mixed anxiety depressive disorder 09/30/2021 Overview (04/16/2023): Now controlled. Multiple dx including anxiety, depression and PTSD. No longer followed by therapist MANDY Rodríguez at [facility] in [place] [phone]. Was seeing Dr. Samantha Arnett [address] [place] [address] room 13. [phone] Dyslipidemia 09/30/2021 Overview (04/16/2023): Lab Results Component [...] Eye exam: [facility], last visit this year. Dental home: 2 months ago last visit. [facility] dental, has appointment with them this week. Encounters Date Type Department Care Team Description 05/23/2025 11:30 AM EST Office Visit [address] [address] Ilana Owens NP Polycythemia (Primary Dx); Exposure to potential infection; Elevated blood pressure reading 05/23/2025 Travel 05/22/[address] [address] Ilana Owens NP Chart Prep 05/19/2025 10:15 AM EST Office Visit [address] [address] Alison Tipton ANP On pre-exposure prophylaxis for HIV (Primary Dx); Elevated blood pressure reading without diagnosis of hypertension 05/19/2025 Travel 05/18/[address] [address] Alison Tipton ANP chart prep 05/15/[address] [address] [facility] 04/24/[address] [address] Ilana Owens NP Nurse Triage 03/21/[address] [address] Ilana Owens NP Medication Question 03/17/2025 Results Follow-Up [address] [address] Ilana Owens NP HIV Ab/Ag ([facility]) 03/15/[address] [address] Ilana Owens NP Results 03/13/2025 Telephone [facility] MEDICINE [address] [place] [address] Ilana Owens NP Medication Question 03/13/2025 Travel 03/10/2025 Orders Only [facility] [address] [place] [address] Jul[address] Plaza FNP On pre-exposure prophylaxis for HIV (Primary Dx) 03/10/2025 Orders Only [facility] MEDICINE [address] [place] [address] Kat Pantoja, AMANDEEP On pre-exposure prophylaxis for HIV (Primary Dx) 03/08/2025 Telephone [facility] MEDICINE [address] [place] [address] [phone] Ilana Owens NP Lab Orders (Pt wants to know the status of her recent lab orders. She wants to know if everything is okay. ) 02/20/2025 2:00 PM EDT Office Visit [facility] MEDICINE [address] [place] [address] [phone] Ilana Owens NP Preventative health care (Primary Dx); Possible exposure to STI; Obesity (BMI 30-39.9); Dietary counseling; Exercise counseling 02/20/2025 Travel from Last 3 Months Immunizations Immunization Administration Dates Next Due Hep A, Adult 09/20/2018,08/25/2008 Hep B, adult 04/06/2019,09/20/2018,08/25/2008 Influenza Injectable Quadriv alant Preservative Free IIV4 MDCK 03/05/2022,03/18/2019 Influenza injectable quadriv alent preservative free 03/04/2023,03/09/2018,04/01/2017,2016 Influenza, IIV3, injectable 02/19/2021,0 03/09/2018,04/01/2017,2016,03/31/2012,04/24/2011 Influenza, Injectable, MDCK, preservative free 02/16/2025 Influenza, seasonal, injecta ble, preservative free 02/15/2024 Smallpox Mpox, Live Attenuat ed, Preservative Free 02/16/2025,02/06/2022 TD (adult), 2 Lf tetanus tox oid, [...] Mass Index 34.65 05/23/2025 11:02 AM EST Plan of Treatment Health Maintenance Due Date Last Done Comments Family Planning (PISQ) 2001 HPV Vaccines (1 - Male 3-dose series) 2001 COVID-19 Vaccine ( season) 2025 03/05/2022, 06/07/2021, 08/26/2020, Additional history exists Disability Screening 02/19/2026 02/19/2025 Alcohol/Substance Use Screening 02/20/2026 02/20/2025 Depression Screening 02/20/2026 02/20/2025, 02/21/20 SDOH Screening 02/20/2026 02/20/2025 Diabetes: Hemoglobin A1C 02/21/2026 025, 04/08/2022, 03/07/2021 Tobacco Screening 05/23/2026 05/23/2025 DTaP/Tdap/Td Vaccines (4 - Td or Tdap) 09/20/2028 09/20/2018, 08/25/2008, 08/25/2008 Lipid Panel 02/21/2030 05/23/2025, 0811/2024, 01/06/2024, Additional history exists Zoster Vaccines (1 of 2) 2036 RSV Patients and Patients Aged 60 years or older (1 - 1-dose 75+ series) 2061 Hepatitis A Vaccines Completed 09/20/2018, 08/25/19 09 Hepatitis B Vaccines Completed 04/06/2019, 09/20/2018, 08/25/2008 Influenza Vaccine Completed 02/16/2025, , 03/04/2023, Additional history exists HIV Screening Completed 03/08/2025, 050 10/2024, 08/04/2024, Additional history exists Hepatitis C Screening Completed 03/08/2025 , 10/31/2024, 04/08/2022 HIB Vaccines Aged Out No longer eligi [...] Procedure Name Priority Date/Time Associated Diagnosis Comments COMPREHENSIVE METABOLIC PANEL Routine 05/23/2025 11:43 AM EST Polycythemia CBC WITH AUTO DIFFERENTIAL Routine 05/23/2025 11:43 AM EST Polycythemia LIPID PANEL, STANDARD Routine 05/23/2025 11:43 AM EST Elevated lipoprotein(a) HIV ANTIBODY/ANTIGEN ([place] D[facility]) Routine 03/08/2025 CHLAMYDIA/GONORRHEA - URINE ([place] [facility]) Routine 03/08/2025 HEPATITIS C ANTIBODY ([place] DPH) Routine 03/08/2025 SYPHILIS ABS ([place] DPH) Routine 03/08/2025 CHLAMYDIA/GONORRHEA THROAT SWAB ([place] DPH) Routine 03/08/2025 CHLAMYDIA/GONORRHEA RECTAL SWAB ([place] DPH) Routine 03/08/2025 CBC WITH AUTO DIFFERENTIAL Routine 02/21/2025 2:27 PM EDT Preventative health care Possible exposure to STI LIPID PANEL, STANDARD Routine 02/21/2025 2:27 PM EDT Preventative health care HEMOGLOBIN A1C Routine 02/21/2025 2:27 PM EDT Preventative health care COMPREHENSIVE METABOLIC PANEL Routine 02/21/2025 2:27 PM EDT Preventative health care from Last 3 Months Results * (ABNORMAL) CBC auto differential (05/23/2025 11:43 AM EST) Only the most recent of2 resultswithin the time period is included. White Blood Count 6.8 4.8 - 10.8 X10*3/uL [facility] Red Blood Count 5.95(H) 4.60 - 5.80 X10*6/uL [facility] Hemoglobin 15.0 14.0 - 18.0 g/dl [facility] Hematocrit 47.8 42.0 - 52.0 % [facility] Mean Corpuscular Volume 80.3 80.0 - 98.0 fL [facility] Mean Corpuscular Hemoglobin 25.2(L) 27.0 - 33.0 pg [facility] Mean Corpuscular HGB Conc 31.4 31.0 - 36.0 g/dl [facility] Red Cell Distribution Width 15.0 11.0 - 16.0 % [facility] Platelet Count 331 160 - 400 X10*3/uL [facility] Mean Platelet Volume 10.0 9.4 - 12.4 fL [facility] Neutrophils Percent Auto 47.6 45 - 73 % [facility] Imm Gran Pct Auto 0.4 0.0 - 0.4 % [facility] Lymphocytes Percent Auto 39.5 20 - 40 % [facility] Monocytes Percent Auto 10.0 2 - 11 % [facility] Eosinophils Percent Auto 1.9 0 - 4 % [facility] Basophils Percent Auto 0.6 0 - 2 % [facility] NRBC Pct Auto 0.0 0.0 - 0.2 /100WBC [facility] Neutrophils Absolute Auto 3.2 2.0 - 8.3 x10*3/uL [facility] Imm Gran Abs Auto 0.03 0.00 - 0.03 X10*3/uL [facility] Lymphocytes Absolute Auto 2.7 1.2 - 4.9 X10*3/uL [facility] Monocytes Absolute Auto 0.7 0.1 - 1.2 X10*3/uL [facility] Eosinophils Absolute Auto 0.1 0.0 - 0.4 X10*3/uL [facility] Basophils Absolute Auto 0.0 0.0 - 0.2 X10*3/uL [facility] NRBC Abs Auto 0.000 0.0 - 0.012 X10*3/uL [facility] Blood Venous blood specimen / Unknown 05/23/2025 11:43 AM EST 05/23/2025 1:11 PM EST us Ilana Owens MANAGER OF TRAINING LAB BLOOD ORDERABLES Final Resul t [facility] [address] [place] [address] [phone] * (ABNORMAL) Lipid Panel, Standard (05/23/2025 11:43 AM EST) Only the most recent of2 resultswithin the time period is included. Triglycerides 278(H) <150 mg/dL [facility] Comment:Desirable Triglyceri de: less than 150 mg/dLBorderline High Triglyceride 150-199 mg/dLHigh Triglyceride: 200-499 mg/dLVery High Triglyceride: greater than or equal to 5OO mg/dL Cholesterol 268(H) <200 mg/dL [facility] Comment:Desirable Cholestero l: less than 200 mg/dLBorderline High Cholesterol: 200-239 mg/dLHigh Cholesterol: greater than 239 mg/dL LDL Cholesterol Calculated 175(H) <100 mg/dL [facility] Comment:Desirable LDL: less than 100 mg/dLNear Optimal/Above Optimal LDL: 110- 129 mg/dLBorderline High LDL: 130-159 mg/dLHigh LDL: 160-189 mg/dLVery High LDL: greater than or equal to 190 mg/dL HDL Cholesterol 38(L) >40 mg/dL [facility] Comment:Desirable HDL: great er than 40 mg/dL Note: This HDL assay may give artificially low results in patients with liver disease. Blood Venous blood specimen / Unknown 05/23/2025 11:43 AM EST 05/23/2025 1:11 PM EST us Ilana Owens NP LAB BLOOD ORDERABLES Final Resul t [facility] [address] [place] [address] [phone] * (ABNORMAL) Comprehensive Metabolic Panel (05/23/2025 11:43 AM EST) Only the most recent of2 resultswithin the time period is included. Sodium 139 135 - 145 mmol/L [facility] Potassium 4.2 3.3 - 5.1 mmol/L [facility] Chloride 102 96 - 108 mmol/L [facility] Carbon Dioxide 29 22 - 29 mmol/L [facility] Anion Gap 12 12 - 20 [facility] Urea Nitrogen (BUN) 11 9 - 16 mg/dL [facility] Creatinine, Serum 0.89 0.5 - 1.4 mg/dL [facility] Estimated Glomerular Filt Rate >60 [facility] Comment:Chronic Kidney Disea se: Estimated GFR < 60 mL/min/1.92f1Jafktk Kidney Disease: Estimated GFR < 15 mL/min/1.73m2 Glucose 96 60 - 115 mg/dL [facility] Calcium 9.6 8.4 - 10.2 mg/dL [facility] Bilirubin, Total 0.7 0.0 - 1.0 mg/dL [facility] Aspartate Amino Transferase 35 5 - 37 U/L [facility] Alanine Aminotransferase 52(H) 0 - 40 U/L [facility] Total Protein 7.9 6.5 - 8.0 g/dL [facility] Albumin Level 5.0 3.5 - 5.0 g/dL [facility] Alkaline Phosphatase 77 39 - 117 U/L [facility] Blood Venous blood specimen / Unknown 05/23/2025 11:43 AM EST 05/23/2025 1:11 PM EST Ilana Owens MANAGER OF TRAINING LAB BLOOD ORDERABLES Final Resul t [facility] [address] [place] [address] [phone] * Chlamydia/Gonorrhea, Rectal Swab ([place] [facility]) (03/08/2025) Chlamydia Rectal Swab Negative Negative, Indeterminate, None Detected, Invalid, Specimen unsatisfactory for evaluation, 2+ Gonorrhea Rectal Swab Negative Negative, Indeterminate, None Detected, Invalid, Specimen unsatisfactory for evaluation, 2+ Swab 03/08/2025 Result [facility] Provider MD LAB MICROBIOLOGY - GENERA L ORDERABLES Final Result * Chlamydia/Gonorrhea Throat Swab ([place] D[facility]) (03/08/2025) Pathologist [facility] Chlamydia Throat Swab Negative Gonorrhea Throat Swab Negative Swab 03/08/2025 Result [facility] Provider MD LAB MICROBIOLOGY - GENERA L ORDERABLES Final Result * Chlamydia/Gonorrhea, Urine ([place] D[facility]) (03/08/2025) Chlamydia, Urine Negative Negative, Indeterminate, None Detected, Invalid, Specimen unsatisfactory for evaluation, Weakly Positive, 2+ Gonorrhea, Urine Negative Negative, Indeterminate, None Detected, Invalid, Specimen unsatisfactory for evaluation, Weakly Positive, 2+ Urine 03/08/2025 Result [facility] Provider MD LAB URINE ORDERABLES Daina l Result * Syphilis Antibodies (DPH) (03/08/2025) Syphilis Abs Nonreactive Borderline, Nonreactive, Weakly Reactive, Inconclusive, Specimen unsatisfactory for evaluation Syphilis RPR Nonreactive Blood Venous blood specimen / Unknown 03/08/2025 Result [facility] Provider MD LAB BLOOD ORDERABLES Daina l Result * Hepatitis C Antibody ([place] [facility]) (03/08/2025) Hepatitis C Ab Nonreactive Blood 03/08/2025 Result [facility] Provider MD LAB BLOOD ORDERABLES Daina l Result * HIV Ab/Ag ([place] [facility]) (03/08/2025) HIV Ag/Ab Nonreactive Blood 03/08/2025 Result [facility] Provider LAB BLOOD ORDERABLES Edit ed Result - Final * Hemoglobin A1c (02/21/2025 2:27 PM EDT) Hemoglobin A1c 5.9 <6.0 % [facility] Comment:Hemoglobin A1C Refer ence Range Adults: 4.8 - 6.0 % Non diabetic: < 6.0 % Goal: < 7.0 %Additional Action Suggested: > 8.0 %Note: Hemoglobin A1c results are invalid for patients with abnormal amounts of HbF. Blood transfusions may impact the HbA1c concentration in the patient sample. Estimated Average Glucose 123 mg/dL [facility] Comment:eAG = Estimated ave rage glucose which is %A1C expressed asaverage glucose, using the formula of the Q2J-FffktqfQeracxk Glucose study (ADAG), Diabetes Care, Vol.31,#8,Jan. 2007 Blood Venous blood specimen / Unknown 02/21/2025 2:27 PM EDT 02/21/2025 3:57 PM EDT Result [facility] Ilana Owens NP LAB BLOOD ORDERABLES Final Resul t [facility] [address] [place] [phone] from Last 3 Months Insurance [facility] C3 Care Teams Systems Software Manager Relationship Specialty Start Date End Date Ilana Owens NP [address] [place] [phone] PCP - General Family Medicine 02/12/24
--- OUTSIDE RECORDS SUMMARY | 2025-05-23 15:12 | XMS_ITS | Encounter Summary ---
Author Organization [employer] Address [address] [facility] 7t [place] [address] Care Team Providers Care Dance Hall Host/Hostess Name Role Phone Ilana Owens NP Primary Care Provider [phone] Reason for Visit * Reason Onset Date Comments Medication Question 03/13/2025 Encounter Details Date Type Department Care Team ([facility] st Contact Info) Description 03/13/2025 Telephone [facility] MEDICINE [address] [place], [place] [phone] Ilana Owens NP [address] [place], [place] [phone] Medication Question Social History Tobacco Use Types Packs/Day Years [...] encounter Miscellaneous Notes * Telephone Encounter - Laurent Azevedo - 03/13/2025 3:52 PM EDT TC from [facility] needing clarification on direction for Cabotegravir ER (Apretude) 600 MG/3ML Suspension Extended Release Need to know whether direction are starter and if so what would be the maintenance directions . Phone- [phone] documented in this encounter Plan of Treatment Not on file documented as of this encounter Visit Diagnoses Not on filedocumented in this encounter Additional Health Concerns Assessment Noted Time PHQ-9 Depression Total Score: 0 02/21/20 2:09 PM EDT documented as of this encounter Care Teams Dance Hall Host/Hostess Relationship Specialty Start Date End Date Ilana Owens NP [address] [place] [address] PCP - General Family Medicine 02/12/24 documented as of this encounter
--- OUTSIDE RECORDS SUMMARY | 2025-05-23 15:12 | XMS_ITS | Encounter Summary ---
Author Organization [employer] Address [address] [place] [address] [address]t [place] [address] Care Team Providers Care Environmental Health And Safety Leader Name Role Phone Crow Taylor Primary Care Provider Unavail Alison Hubbard ANP Primary Care Provider [phone] Madeleine Peña Primary Care Provider [phone] Ilana Owens NP Primary Care Provider [phone] Encounter Details Date Type Department Care Team (Late st Contact Info) Description 12/31/2022 Telephone [facility] MEDICINE [address] [place] [address] Crow Taylor AGNP Social History Tobacco Use [...] as of this encounter Care Teams Environmental Health And Safety Leader Relationship Specialty Start Date End Date Crow Taylor AGNP PCP - General Family Medicine 10/28/22 03/18/23 Alison Tipton ANP [address] [place] [address] PCP - General Family Medicine 07/07/23 10/12/23 Madeleine Peña FNP [address] [place] [address] PCP - General Family Medicine 11/04/23 02/11/24 Ilana Owens NP [address] [place] [address] PCP - General Family Medicine 02/12/24 documented as of this encounter
--- OUTSIDE RECORDS SUMMARY | 2025-05-23 15:12 | XMS_ITS | Encounter Summary ---
Author Organization [employer] Address [address] [place] [address] 7t [place] [address] Care Team Providers Care Solderer Torch Name Role Phone Citlali Garcia MD Primary Care Provider [phone] Crow Taylor Primary Care Provider Unavail Alison Hubbard Primary Care Provider Madeleine Peña Primary Care Provider [phone] Ilana Owens NP Primary Care Provider Reason for Visit * Reason Onset Date Comments Appointment Request 09/24/2022 Encounter Details Date Type Department Care Team (Late st Contact Info) Description 09/24/2022 Telephone [facility] MEDICINE [address] [place], [place] [phone] Citlali Garcia MD [address] [place], [place] [phone] Appointment Request Social History Tobacco Use Types [...] Lip lesion ) Please contact pt at [phone] documented in this encounter Plan of Treatment Not on file documented as of this encounter Visit Diagnoses Not on filedocumented in this encounter Care Teams Solderer Torch Relationship Specialty Start Date End Date Citlali Garcia MD [address] [place] [address] PCP - General Family Medicine 07/30/18 10/27/22 Crow Taylor AGNP [address] [place] [address] PCP - General Family Medicine 10/28/22 03/18/23 Alison Tipton ANP [address] [place] [address] PCP - General Family Medicine 07/07/23 10/12/23 Madeleine Peña FNP [address] [place] [address] PCP - General Family Medicine 11/04/23 02/11/24 Ilana Owens NP [address] [place] [address] PCP - General Family Medicine 02/12/24 documented as of this encounter
--- OUTSIDE RECORDS SUMMARY | 2025-05-23 15:12 | XMS_ITS | Encounter Summary ---
Author Organization [employer] Address [address] [facility] 7t [place] [address] Care Team Providers Care Calculating Machine Mechanic Name Role Phone Citlali Garcia MD Primary Care Provider [phone] Crow Taylro Primary Care Provider Unavail Alison Hubbard Primary Care Provider Madeleine Peña Primary Care Provider [phone] Ilana Owens NP Primary Care Provider Reason for Visit * Reason Onset Date Comments Referral 08/22/2022 Encounter Details Date Type Department Care Team (Late st Contact Info) Description 08/22/2022 Telephone [facility] MEDICINE [address] [place], [place] [phone] Citlali Garcia MD [address] [place], [place] [phone] Referral Social History Tobacco Use Types Packs/Day [...] to derm Mas. Lastly, is interested in [facility] dental. Informed no referral needed, can [...] or a nurse. Please contact pt at [phone] documented in this encounter Plan of Treatment Not on file documented as of this encounter Visit Diagnoses Not on filedocumented in this encounter Care Teams Calculating Machine Mechanic Relationship Specialty Start Date End Date Citlali Garcia MD [address] [place] [address] PCP - General Family Medicine 07/30/18 10/27/22 Crow Taylor AGNP [address] [place] [address] PCP - General Family Medicine 10/28/22 03/18/23 Alison Tipton ANP [address] [place] [address] PCP - General Family Medicine 07/07/23 10/12/23 Madeleine Peña FNP [address] [place] [address] PCP - General Family Medicine 11/04/23 02/11/24 Ilana Owens NP [address] [place] [address] PCP - General Family Medicine 02/12/24 documented as of this encounter
--- OUTSIDE RECORDS SUMMARY | 2025-05-23 15:12 | XMS_ITS | Encounter Summary ---
Author Organization [employer] Address [address] [facility] 7t [place] [address] Care Team Providers Care Licensed Mortgage Loan Officer Name Role Phone AnsleyIlana carrillo JEFF Primary Care Provider [phone] Encounter Details Date Type Department Care Team ([facility] st Contact Info) Description 03/10/2025 Orders Only [facility] MEDICINE [address] [place] [address] Kat Pantoja, RN [address] [place] [address] On pre-exposure prophylaxis for HIV (Primary Dx) Social History Tobacco Use Types Packs/Day Years [...] Diagnosis On pre-exposure prophylaxis for HIV- Primary documented in this encounter Additional Health Concerns Assessment Noted Time PHQ-9 Depression Total Score: 0 02/21/20 2:09 PM EDT documented as of this encounter Care Teams Licensed Mortgage Loan Officer Relationship Specialty Start Date End Date Ilana Owens NP [address] [place] [phone] PCP - General Family Medicine 02/12/24 documented as of this encounter
--- OUTSIDE RECORDS SUMMARY | 2025-05-23 15:12 | XMS_ITS | Encounter Summary ---
Author Organization [employer] Address [address] [facility] 7t [place] [address] Care Team Providers Care Burlapper Name Role Phone Ilana Owens NP Primary Care Provider Reason for Visit * Reason Onset Date Comments Chart Prep 05/22/2025 Encounter Details Date Type Department Care Team ([facility] st Contact Info) Description 05/22/2025 Telephone [facility] MEDICINE [address] [place], [place] [phone] Ilana Owens NP [address] [place] [address] Chart Prep Social History Tobacco Use Types Packs/Day Years [...] encounter Miscellaneous Notes * Telephone Encounter - Lisa Narayanan MA - 05/22/2025 10:13 AM EST Chart Prep Labs: not done from 03/13/25 Images: not applicable Referrals: not applicable Vaccines due: Covid and HPV Screenings: not applicable Overdue care gaps: Tobacco documented in this encounter Plan of Treatment Not on file documented as of this encounter Visit Diagnoses Not on filedocumented in this encounter Additional Health Concerns Assessment Noted Time PHQ-9 Depression Total Score: 0 02/21/20 2:09 PM EDT documented as of this encounter Care Teams Burlapper Relationship Specialty Start Date End Date Ilana Owens NP [address] [place] [phone] PCP - General Family Medicine 02/12/24 documented as of this encounter
[2025-05-25 06:03] LABS: HIV RNA PCR Qn Copies NOT DETECTED copies/mL (NOT DETECTED); HIV RNA PCR Qn Log Copies NOT DETECTED (NOT DETECTED)
== END 2025-05-23 11:29 | disposition home or self-care (01) ==
LOC: HO.HHCL 11:28
PROVIDERS: PCP Nurse Practitioner Family; Visit Provider Nurse Practitioner Family
DX: Z11.4 Encounter for screening for human immunodeficiency virus [HIV] (principal); E78.41 Elevated Lipoprotein(a); D75.1 Secondary polycythemia; Z79.899 Other long term (current) drug therapy
CPT/HCPCS: 36415; 80053; 80061; 85025; 87536